=== PATIENT | female | born 1950 | race Caucasian/White ===

== ENCOUNTER 2020-12-02 08:45 | Outpatient (REF) | payer MEDICARE, SELFPAY ==
[2020-12-02 10:42] LABS: MANUAL DIFF FLAG NO
[2020-12-02 10:55] LABS: Basophils Percent Auto 0.4 % (0-2); Eosinophils Absolute Auto 0.1 X10*3/uL (0.0-0.4); Eosinophils Percent Auto 1.6 % (0-4); Hematocrit 40.4 % (37-47); Hemoglobin 13.6 g/dl (12.0-16.0); Imm Gran Abs Auto 0.01 X10*3/uL (0.00-0.03); Imm Gran Pct Auto 0.1 % (0.0-0.4); Lymphocytes Absolute Auto 2.9 X10*3/uL (1.2-4.9); Lymphocytes Percent Auto 42.5 % (20-40); Mean Corpuscular HGB Conc 33.7 g/dl (31.0-35.0); Mean Corpuscular Volume 95.1 fL (80-98); Monocytes Absolute Auto 0.8 X10*3/uL (0.1-1.2); Monocytes Percent Auto 11.3 % (2-11); Neutrophils Percent Auto 44.1 % (45-73); Platelet Count 276 X10*3/uL (160-400); Red Blood Count 4.25 X10*6/uL (4.20-5.50); Red Cell Distribution Width 12.7 % (11.0-16.0); White Blood Count 6.8 X10*3/uL (4.8-10.8)
[2020-12-02 11:00] LABS: Glucose Urine UA NEG (NEG); Leukocyte Esterase Urine 2+ (NEG); Nitrite Urine NEG (NEG); Specific Gravity - Urine 1.025 (1.005-1.025); Urine Blood 2+ (NEG); Urine Ketones NEG (NEG); Urine Protein NEG (NEG-TRACE)
[2020-12-02 11:01] LABS: Appearance Urine HAZY; Color Urine YELLOW
[2020-12-02 11:18] LABS: Alanine Aminotransferase 26 U/L (0-31); Albumin Level 4.1 g/dL (3.5-5.0); Alkaline Phosphatase 80 U/L (39-117); Anion Gap 11 (12-20); Aspartate Amino Transferase 21 U/L (5-31); Bilirubin Total 0.9 mg/dL (0.0-1.0); Blood Urea Nitrogen 18 mg/dL (9-16); Calcium 9.3 mg/dL (8.4-10.2); Carbon Dioxide 31 mmol/L (22-29); Chloride 105 mmol/L (96-108); Cholesterol 142 mg/dL; Estimated Glomerular Filt Rate > 60; Glucose Fasting 102 mg/dL (60-99); HDL Cholesterol 67 mg/dL; LDL Cholesterol Calculated 64 mg/dl; Potassium 4.8 mmol/l (3.3-5.1); Sodium 142 mmol/L (135-145); Total Protein 6.5 g/dL (6.5-8.0); Triglycerides 56 mg/dL
[2020-12-02 11:22] LABS: Bacteria Urine TRACE /LPF; Squamous Epithelial Cell Urine 1+ /LPF
[2020-12-02 11:23] LABS: Mucus Urine 1+ /LPF
[2020-12-02 11:24] LABS: Calcium Oxalate Crystals Urine 1+ /LPF
[2020-12-02 11:40] LABS: TSH reflex Free T4 1.47 mIU/mL (0.32-4.0)
== END 2020-12-02 08:46 | disposition home or self-care (01) ==
LOC: HO.WFDLDS 08:45
PROVIDERS: Visit Provider Family Medicine
DX: Z00.00 Encounter for general adult medical examination without abnormal findings (principal); R73.01 Impaired fasting glucose
CPT/HCPCS: 36415; 80053; 80061; 81001; 81003; 84443; 85025

== ENCOUNTER 2020-12-07 10:41 | Outpatient (REF) | payer MEDICARE, SELFPAY | END 2020-12-07 10:42 | disposition home or self-care (01) | LOC: HO.WFDLDS 10:41 | PROVIDERS: Visit Provider Family Medicine | DX: R82.90 Unspecified abnormal findings in urine (principal) | CPT/HCPCS: 87086 ==

== ENCOUNTER 2020-12-09 14:10 | Outpatient (REF) | payer MEDICARE, SELFPAY ==
[2020-12-09 14:26] LABS: Glucose Urine UA NEG (NEG); Leukocyte Esterase Urine NEG (NEG); Nitrite Urine NEG (NEG); Urine Blood TRACE (NEG); Urine Ketones NEG (NEG); Urine Protein NEG (NEG-TRACE)
[2020-12-09 14:33] LABS: Appearance Urine CLEAR; Color Urine YELLOW
[2020-12-09 14:42] LABS: RBC Urine 0-2 /HPF (0); WBC Urine 0 /HPF (0-4)
== END 2020-12-09 14:11 | disposition home or self-care (01) ==
LOC: HO.LNP 14:10
PROVIDERS: Visit Provider Family Medicine
DX: R82.90 Unspecified abnormal findings in urine (principal)
CPT/HCPCS: 81001

== ENCOUNTER 2021-02-25 08:32 | Outpatient (REF) | payer MEDICARE, SELFPAY ==
--- NOTE | ~2021-02-25 | MM_ITS ---
EXAMINATION: BONE DENSITOMETRY CLINICAL INDICATION: Encounter for screening for osteoporosis. COMPARISON: None (current study represents initial baseline exam). TECHNIQUE: Using a [employer] DXA System (software version: 13.1) manufactured by [employer], dual-energy x-ray absorptiometry was performed of the lumbar spine and left hip. The images are of good technical quality. Summary results are attached. FINDINGS: AP SPINE L1-L4: BMD 1.243 g/cm2, Z-score 2.1, T-score 0.5, normal. LEFT FEMUR, NECK: BMD 0.764 g/cm2, Z-score -0.3, T-score -2.0, osteopenia. LEFT FEMUR, TOTAL: BMD 0.901 g/cm2, Z-score 0.6, T-score -0.8, normal. IDENTIFIED RISK FACTORS: Menopause. HISTORY OF FRACTURE: None listed. MEDICATIONS: Calcium supplements or multivitamin, vitamin D. MM/XR DEXA axial skeleton IMPRESSION: 1. DIAGNOSIS: Osteopenia based on the lowest T-score value of -2.0 in the femoral neck applying World Health Organization criteria. 2. 10-YEAR FRACTURE RISK PREDICTION, FRAX: Major osteoporotic fracture (clinical spine, forearm, hip or shoulder) 12.2%. Hip fracture 2.5%. 3. Treatment Recommendations: NOF guidelines recommend consideration for treatment in postmenopausal women and men age 50 and older presenting with the following: -A hip or vertebral (clinical or morphometric) fracture. -T-score less than or equal to -2.5 at the femoral neck or spine after appropriate evaluation to exclude secondary causes. -Low bone mass at the hip or spine and a 10-year fracture probability by FRAX of greater than or equal to 3% for hip fracture or greater than or equal to 20% for major osteoporotic fracture based on the [place] adapted WHO algorithm. 4. Other Recommendations: All treatment decisions require clinical judgment and consideration of individual patient factors, including patient preferences, comorbidities, previous drug use, risk factors not captured in the FRAX model (e.g. frailty, falls, vitamin D deficiency, increased bone turnover, interval significant decline in bone density) and possible under or overestimation of fracture risk by FRAX. Additional medical evaluation for secondary cause of low bone mineral density may be appropriate. FUTURE SCAN RECOMMENDATION: People with diagnosed cases of osteoporosis or at high risk for fracture should have regular bone mineral density tests. For patients eligible for Medicare, routine testing is allowed once every 2 years. The testing frequency can be increased to one year for patients who have rapidly progressing disease, those who are receiving or discontinuing medical therapy to restore bone mass, or have additional risk factors.
--- NOTE | ~2021-02-25 | MM_ITS ---
EXAMINATION: MM SCREENING DIGITAL BREAST TOMOSYNTHESIS, BILATERAL CLINICAL INFORMATION: Screening. Asymptomatic. Prior [id number] mammography from [place] currently unavailable. Age 70. No known family history breast cancer. The lifetime risk of breast cancer based on the Tyrer-Cuzick Model is 3%. COMPARISON: None. TECHNIQUE: Digital breast tomosynthesis is performed in both the craniocaudal and mediolateral oblique views along with computer-aided detection (CAD). Synthesized 2D images are generated from the tomosynthesis. FINDINGS: There are scattered areas of fibroglandular density (ACR BI-RADS breast composition Category b). The left breast shows no mass or architectural abnormality. The bilateral axilla and skin contours are unremarkable. There are a few scattered punctate round and some vascular calcifications. Right breast has oval focal parenchymal asymmetry mid upper outer approximately 1.3 x 0.9 cm, possibly a cyst with obscured margins. Radiology staff has requested prior [id number] mammography to allow for comparison in an addendum report. If prior outside exams are unable to be retrieved, then patient will be recalled for additional imaging right breast. MM/MM tomosynthesis screening BI IMPRESSION: 1. Right: Oval focal parenchymal asymmetry mid upper outer quadrant possibly cyst with obscured margins 1.3 x 0.9 cm. 2. Left: No mammographic evidence of malignancy. ASSESSMENT: BI-RADS 0: Incomplete - Need Additional Imaging Evaluation RECOMMENDATION: Radiology staff has requested prior [id number] mammography to allow for comparison in an addendum report. If prior outside exams are unable to be retrieved, then patient will be recalled for additional imaging right breast. This patient's information was entered into a reminder system with a target due date for their next mammogram.
== END 2021-02-25 08:33 | disposition home or self-care (01) ==
LOC: HO.MAMMO 08:32
PROVIDERS: Visit Provider Family Medicine
DX: Z13.820 Encounter for screening for osteoporosis (principal); Z78.0 Asymptomatic menopausal state; M85.80 Other specified disorders of bone density and structure, unspecified site; Z79.899 Other long term (current) drug therapy; Z12.31 Encounter for screening mammogram for malignant neoplasm of breast
CPT/HCPCS: 77063; 77067; 77080

== ENCOUNTER 2021-03-02 09:05 | Outpatient (REF) | payer MEDICARE, SELFPAY ==
[2021-03-02 12:09] LABS: Alanine Aminotransferase 25 U/L (0-31); Albumin Level 4.3 g/dL (3.5-5.0); Alkaline Phosphatase 94 U/L (39-117); Anion Gap 10 (12-20); Aspartate Amino Transferase 20 U/L (5-31); Blood Urea Nitrogen 17 mg/dL (9-16); Calcium 9.5 mg/dL (8.4-10.2); Carbon Dioxide 31 mmol/L (22-29); Chloride 105 mmol/L (96-108); Estimated Glomerular Filt Rate > 60; Glucose Fasting 97 mg/dL (60-99); Potassium 5.2 mmol/L (3.3-5.1); Sodium 141 mmol/L (135-145); Total Protein 6.8 g/dL (6.5-8.0)
== END 2021-03-02 09:06 | disposition home or self-care (01) ==
LOC: HO.WFDLDS 09:05
PROVIDERS: Visit Provider Family Medicine
DX: Z00.00 Encounter for general adult medical examination without abnormal findings (principal); R73.01 Impaired fasting glucose
CPT/HCPCS: 36415; 80053

== ENCOUNTER → 2021-03-17 09:53 | Outpatient (BNVA) | payer MEDICARE, SELFPAY | PROVIDERS: PCP Family Medicine; Visit Provider Anesthesiology | DX: M48.00 Spinal stenosis, site unspecified (principal); G89.4 Chronic pain syndrome; Z79.891 Long term (current) use of opiate analgesic | CPT/HCPCS: 99202 ==

== ENCOUNTER 2021-03-23 09:02 | Outpatient (REF) | payer MEDICARE, SELFPAY ==
--- NOTE | ~2021-03-23 | MR_ITS ---
MR LUMBAR SPINE WITHOUT CONTRAST CLINICAL INFORMATION: Spinal stenosis COMPARISON: None TECHNIQUE: MRI of the lumbar spine was obtained using routine sequences without contrast. FINDINGS: There are 5 nonrib-bearing lumbar-type vertebral bodies. There is grade 1 retrolisthesis of L2 on L3 and L5 on S1. There is grade 1 degenerative anterolisthesis of L4 on L5. Vertebral body heights are maintained. Moderate disc volume loss at L2-L3 and moderate to severe disc volume loss at L5-S1. Modic type I endplate signal changes at L2-L3 and L5-S1. There is no additional bone marrow edema. There are no acute fractures. Conus terminates at the T12-L1 level. No significant extraspinal soft tissue findings. Multilevel endplate osteophytes. L1-L2: Small annular disc bulge and moderate bilateral facet arthropathy and ligamentum flavum thickening. Superimposed far left lateral disc protrusion that may result in mass effect on the extraforaminal left L1 nerve root. L2-L3: Grade 1 retrolisthesis. Diffuse annular disc bulge and severe bilateral facet arthropathy and ligamentum flavum thickening. Findings in concert result in moderate to severe central canal stenosis, right greater than left subarticular zone stenosis with mass effect on the traversing right and left L3 nerve roots, and moderate to severe right foraminal stenosis with mass effect on the exiting right L2 nerve root. L3-L4: Diffuse annular disc bulge and severe bilateral facet arthropathy and ligamentum flavum thickening. Findings in concert result in mild to moderate central canal stenosis and mild bilateral foraminal encroachment. L4-L5: Grade 1 degenerative anterolisthesis. Severe bilateral facet arthropathy and ligamentum flavum thickening. Findings in concert result in severe central canal stenosis and moderate to severe bilateral foraminal stenosis with mass effect on the exiting L4 nerve roots bilaterally. L5-S1: Grade 1 retrolisthesis. Broad-based left paracentral disc protrusion compresses the traversing left greater than right S1 nerve roots within the subarticular zones. Disc osteophyte and facet arthropathy result in severe bilateral foraminal stenosis with compression of the exiting L5 nerve roots bilaterally. MR/MR lumbar spine wo con IMPRESSION: - At L5-S1, a broad-based left paracentral disc protrusion compresses the traversing left greater than right S1 nerve roots within the subarticular zones and multifactorial degenerative changes result in severe bilateral foraminal stenosis with compression of the exiting L5 nerve roots bilaterally. - At L4-L5, grade 1 degenerative anterolisthesis and multifactorial degenerative changes result in severe central canal stenosis and moderate to severe bilateral foraminal stenosis with mass effect on the exiting L4 nerve roots bilaterally. - At L2-L3, multifactorial degenerative changes result in moderate to severe central canal stenosis, right greater than left subarticular zone stenosis with mass effect on the traversing right and left L3 nerve roots, and moderate to severe right foraminal stenosis with mass effect on the exiting right L2 nerve root. - At L1-L2, there is a far left lateral disc protrusion that may result in mass effect on the extraforaminal left L1 nerve root.
== END 2021-03-23 09:03 | disposition home or self-care (01) ==
LOC: HO.MRI 09:02
PROVIDERS: Visit Provider Anesthesiology
DX: M48.00 Spinal stenosis, site unspecified (principal); G89.4 Chronic pain syndrome
CPT/HCPCS: 72148

== ENCOUNTER → 2021-03-31 08:11 | Outpatient (BNVA) | payer MEDICARE, SELFPAY | PROVIDERS: PCP Family Medicine; Visit Provider Anesthesiology | DX: M48.00 Spinal stenosis, site unspecified (principal); G89.4 Chronic pain syndrome; Z79.891 Long term (current) use of opiate analgesic | CPT/HCPCS: 99212 ==

== ENCOUNTER → 2021-05-03 10:38 | Outpatient (BNVA) | payer MEDICARE, SELFPAY | PROVIDERS: PCP Family Medicine; Visit Provider Anesthesiology | DX: M48.00 Spinal stenosis, site unspecified (principal); G89.4 Chronic pain syndrome; Z79.891 Long term (current) use of opiate analgesic | CPT/HCPCS: 99212 ==

== ENCOUNTER 2021-06-07 19:39 | Outpatient (REF) | payer MEDICARE, SELFPAY | END 2021-06-07 19:40 | disposition home or self-care (01) | LOC: HO.LNP 19:39 | PROVIDERS: Visit Provider Family Medicine | DX: N39.0 Urinary tract infection, site not specified (principal) | CPT/HCPCS: 87086; 87088; 87186 ==

== ENCOUNTER 2021-08-09 12:24 | Outpatient (REF) | payer MEDICARE, SELFPAY ==
[2021-08-09 13:06] LABS: Influenza A PCR NEGATIVE (Negative); Influenza B PCR NEGATIVE (Negative); Resp Syncy Virus RNA Qual PCR NEGATIVE (Negative); SARS COV2 PCR INHOUSE NEGATIVE (Negative)
== END 2021-08-09 12:25 | disposition home or self-care (01) ==
LOC: HO.LNP 12:24
PROVIDERS: Visit Provider Family Medicine
DX: Z20.822 Contact with and (suspected) exposure to COVID-19 (principal); J02.9 Acute pharyngitis, unspecified; B34.9 Viral infection, unspecified
CPT/HCPCS: 0241U

== ENCOUNTER 2021-09-01 09:44 | Outpatient (REF) | payer MEDICARE, SELFPAY | END 2021-09-01 09:45 | disposition home or self-care (01) | LOC: HO.WFDLDS 09:44 | PROVIDERS: Visit Provider Family Medicine | DX: N39.0 Urinary tract infection, site not specified (principal) | CPT/HCPCS: 87086 ==

== ENCOUNTER 2021-12-23 11:46 | Outpatient (REF) | payer MEDICARE, SELFPAY ==
[2021-12-23 13:30] LABS: MANUAL DIFF FLAG NO
[2021-12-23 13:33] LABS: Basophils Percent Auto 0.4 % (0-2); Eosinophils Absolute Auto 0.1 X10*3/uL (0.0-0.4); Eosinophils Percent Auto 0.7 % (0-4); Hematocrit 43.1 % (37.0-47.0); Hemoglobin 14.5 g/dl (12.0-16.0); Imm Gran Abs Auto 0.02 X10*3/uL (0.00-0.03); Imm Gran Pct Auto 0.3 % (0.0-0.4); Lymphocytes Absolute Auto 2.6 X10*3/uL (1.2-4.9); Mean Corpuscular HGB Conc 33.6 g/dl (31.0-35.0); Mean Corpuscular Hemoglobin 31.2 pg (27.0-33.0); Mean Corpuscular Volume 92.7 fL (80.0-98.0); Monocytes Absolute Auto 0.6 X10*3/uL (0.1-1.2); Monocytes Percent Auto 8.4 % (2-11); Neutrophils Absolute Auto 4.3 x10*3/uL (2.0-8.3); Neutrophils Percent Auto 56.2 % (45-73); Platelet Count 258 X10*3/uL (160-400); Red Blood Count 4.65 X10*6/uL (4.20-5.50); Red Cell Distribution Width 12.6 % (11.0-16.0); White Blood Count 7.6 X10*3/uL (4.8-10.8)
[2021-12-23 14:14] LABS: Alanine Aminotransferase 21 U/L (0-31); Albumin Level 4.2 g/dL (3.5-5.0); Alkaline Phosphatase 84 U/L (39-117); Anion Gap 12 (12-20); Aspartate Amino Transferase 19 U/L (5-31); Bilirubin Total 0.6 mg/dL (0.0-1.0); Blood Urea Nitrogen 17 mg/dL (9-16); Calcium 9.6 mg/dL (8.4-10.2); Carbon Dioxide 29 mmol/L (22-29); Chloride 103 mmol/L (96-108); Cholesterol 150 mg/dL; Estimated Glomerular Filt Rate > 60; Glucose Fasting 100 mg/dL (60-99); HDL Cholesterol 66 mg/dL; LDL Cholesterol Calculated 68 mg/dl; Potassium 4.3 mmol/L (3.3-5.1); Sodium 140 mmol/L (135-145); Triglycerides 81 mg/dL
[2021-12-23 14:25] LABS: TSH reflex Free T4 1.15 uIU/mL (0.32-4.0)
== END 2021-12-23 11:47 | disposition home or self-care (01) ==
LOC: HO.WFDLDS 11:46
PROVIDERS: Visit Provider Family Medicine
DX: Z00.00 Encounter for general adult medical examination without abnormal findings (principal)
CPT/HCPCS: 36415; 80053; 80061; 84443; 85025

== ENCOUNTER 2022-01-17 18:05 | Outpatient (REF) | payer MEDICARE, SELFPAY | END 2022-01-17 18:06 | disposition home or self-care (01) | LOC: HO.LNP 18:05 | PROVIDERS: Visit Provider Family Medicine | DX: R05.9 Cough, unspecified (principal); Z20.822 Contact with and (suspected) exposure to COVID-19 | CPT/HCPCS: U0003; U0005 ==

== ENCOUNTER 2022-02-26 08:39 | Outpatient (REF) | payer MEDICARE, SELFPAY ==
--- NOTE | ~2022-02-26 | MM_ITS ---
EXAMINATION: MM SCREENING DIGITAL BREAST TOMOSYNTHESIS, BILATERAL CLINICAL INFORMATION: Screening. Asymptomatic. The lifetime risk of breast cancer based on the Tyrer-Cuzick Model is 3%. COMPARISON: Mammography: 02/25/2021, 10/23/2019, 10/22/2018 TECHNIQUE: Digital breast tomosynthesis is performed in both the craniocaudal and mediolateral oblique views along with computer-aided detection (CAD). Synthesized 2D images are generated from the tomosynthesis. FINDINGS: There are scattered areas of fibroglandular density (ACR BI-RADS breast composition Category b). There are no significant masses, abnormal calcifications, or other abnormalities. Oval nodular parenchymal asymmetry posterior upper outer right breast is decreased since 2018. There is no developing density. No architectural abnormality. The axilla and skin contours are unremarkable. MM/MM tomosynthesis screening BI IMPRESSION: No mammographic evidence of malignancy. ASSESSMENT: BI-RADS 2: Benign RECOMMENDATION: Routine annual mammography screening. This patient's information was entered into a reminder system with a target due date for their next mammogram.
== END 2022-02-26 08:40 | disposition home or self-care (01) ==
LOC: HO.MAMMO 08:39
PROVIDERS: Visit Provider Family Medicine
DX: Z12.31 Encounter for screening mammogram for malignant neoplasm of breast (principal)
CPT/HCPCS: 77063; 77067

== ENCOUNTER 2022-06-08 11:40 | Outpatient (REF) | payer MEDICARE, SELFPAY | END 2022-06-08 11:41 | disposition home or self-care (01) | LOC: HO.LNP 11:40 | PROVIDERS: Visit Provider Hospitalist | DX: R30.0 Dysuria (principal); N39.0 Urinary tract infection, site not specified | CPT/HCPCS: 87086; 87088; 87186 ==

== ENCOUNTER 2022-08-30 14:32 | Outpatient (REF) | payer MEDICARE, SELFPAY ==
[2022-08-30 16:01] LABS: Influenza A PCR NEGATIVE (Negative); Influenza B PCR NEGATIVE (Negative); Resp Syncy Virus RNA Qual PCR POSITIVE (Negative); SARS COV2 PCR INHOUSE NEGATIVE (Negative)
== END 2022-08-30 14:33 | disposition home or self-care (01) ==
LOC: HO.LNP 14:32
PROVIDERS: Visit Provider Nurse Practitioner Family
DX: J06.9 Acute upper respiratory infection, unspecified (principal); Z20.822 Contact with and (suspected) exposure to COVID-19
CPT/HCPCS: 0241U

== ENCOUNTER 2022-09-01 09:02 | Outpatient (REF) | payer MEDICARE, SELFPAY ==
[2022-09-01 11:55] LABS: Estimated Average Glucose 111 mg/dL; Hemoglobin A1c % 5.5 %
[2022-09-01 12:22] LABS: TSH reflex Free T4 1.56 uIU/mL (0.32-4.0)
[2022-09-01 12:23] LABS: Alanine Aminotransferase 25 U/L (0-31); Alkaline Phosphatase 93 U/L (39-117); Anion Gap 15 (12-20); Aspartate Amino Transferase 19 U/L (5-31); Bilirubin Total 0.4 mg/dL (0.0-1.0); Blood Urea Nitrogen 21 mg/dL (9-16); Calcium 9.6 mg/dL (8.4-10.2); Carbon Dioxide 29 mmol/L (22-29); Chloride 104 mmol/L (96-108); Cholesterol 146 mg/dL; Estimated Glomerular Filt Rate > 60; Glucose Fasting 90 mg/dL (60-99); HDL Cholesterol 60 mg/dL; LDL Cholesterol Calculated 71 mg/dl; Potassium 4.3 mmol/L (3.3-5.1); Sodium 144 mmol/L (135-145); Total Protein 6.7 g/dL (6.5-8.0); Triglycerides 79 mg/dL
[2022-09-01 12:39] LABS: Creatinine Urine 126.35 mg/dL; Microalbum/Creatinine Ratio Ur 10.2 ug/mg cr
== END 2022-09-01 09:03 | disposition home or self-care (01) ==
LOC: HO.WFDLDS 09:02
PROVIDERS: Visit Provider Family Medicine
DX: Z00.00 Encounter for general adult medical examination without abnormal findings (principal); R73.01 Impaired fasting glucose; I10 Essential (primary) hypertension
CPT/HCPCS: 36415; 80053; 80061; 82043; 83036; 84443

== ENCOUNTER 2023-03-04 08:40 | Outpatient (REF) | payer MEDICARE, SELFPAY ==
--- NOTE | ~2023-03-04 | MM_ITS ---
EXAMINATION: MM SCREENING DIGITAL BREAST TOMOSYNTHESIS, BILATERAL CLINICAL INFORMATION: Screening. Asymptomatic. The lifetime risk of breast cancer based on the Tyrer-Cuzick Model is 2%. COMPARISON: Mammography: 02/26/2022, 02/25/2021; outside mammography 10/23/2019, 10/22/2018, 10/19/2017 ([place], [place]). TECHNIQUE: Digital breast tomosynthesis is performed in both the craniocaudal and mediolateral oblique views along with computer-aided detection (CAD). Synthesized 2D images are generated from the tomosynthesis. FINDINGS: There are scattered areas of fibroglandular density (ACR BI-RADS breast composition Category b). Parenchymal pattern is similar to prior studies. Oval asymmetry posterior upper outer right breast is decreased since outside exams. No architectural abnormality or developing density or significant change from prior studies. There are no significant masses, abnormal calcifications, or other abnormalities. The axilla and skin contours are unremarkable. MM/MM tomosynthesis screening BI IMPRESSION: No mammographic evidence of malignancy. ASSESSMENT: BI-RADS 2: Benign RECOMMENDATION: Routine annual mammography screening. This patient's information was entered into a reminder system with a target due date for their next mammogram.
== END 2023-03-04 08:41 | disposition home or self-care (01) ==
LOC: HO.MAMMO 08:40
PROVIDERS: PCP Family Medicine; Visit Provider Family Medicine
DX: Z12.31 Encounter for screening mammogram for malignant neoplasm of breast (principal)
CPT/HCPCS: 77063; 77067

== ENCOUNTER 2023-12-21 15:44 | Outpatient (AMB) | payer MEDICARE, SELFPAY ==
--- NOTE | 2023-12-21 16:00 | A.OFFPC_ITS ---
Vital Signs 12/21/23 16:01 Height 5 ft 3 in Weight 131 lb BMI 23.2 BP 110/68 Blood Pressure Location Lt brachial Position Sitting Pulse 62 Pulse Source Pulse Oximeter Pulse Oximetry (%) 99 Oxygen Delivery Method Room Air Intake Visit Reasons: CPE with f/u labs and health maint. Intake Note: Patient is here for physical and health maintenance. Allergies Penicillins Allergy (Verified 12/21/23 16:04) Rash Medication List - Last Reconciled 12/21/23 by Bacilio Vee MD aspirin (Ramesh Chewable Low Dose Aspirin) 81 mg PO DAILY atorvastatin 20 mg PO DAILY cetirizine (All Day Allergy (cetirizine)) 10 mg PO DAILY PRN cholecalciferol (vitamin D3) 25 mcg PO DAILY dextromethorphan HBr 20 mg (15 mL) PO TID PRN 5 days gabapentin 300 mg PO BEDTIME 90 days ipratropium bromide 2 sprays intranasal BID lisinopril 20 mg PO DAILY meclizine 25 mg PO TID meloxicam 7.5 mg PO DAILY 30 days naloxone 4 mg/actuation (Narcan) 4 mg intranasal Q2M PRN prednisone 40 mg (2 x 20 mg) PO DAILY 5 days tramadol 50 mg PO BEDTIME 30 days Tobacco use date assessed: 12/21/23 Fall risk assessment: No Falls in past year Last assessed Fall Risk: 12/21/23 Dental Screening Dental Screen Date: 12/21/23 Did you have a dental visit in the last 12 months?: No Did you have a dental problem in the last 6 months where you did not have access to dental care?: No Was dental information given to patient?: Patient declined HPI CPE with f/u labs and health maint. HPI Details 73 y/o female presents for a CPE with f/ u labs and health maintenance. No recent labs to review. Cologuard 10/13/23 negative. She is due for a mammogram. 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 Mother No problems noted. Social History Housing: House Alcohol intake: current Alcohol intake frequency: holidays/special occasions only Patient Tobacco Use Status: Never used Tobacco e-Cigarette/Vaping Use: Never Used Second Hand Smoke Exposure: No service: No Current occupational status: retired Current occupational exposures/hazards: No Cognitive needs: No Hearing needs: No Vision needs: No Questionnaire PHQ-9 Over the last 2 weeks, how often have you been bothered by any of the following problems? 1. Little interest or pleasure in doing things: not at all 2. Feeling down, depressed, or hopeless: not at all 3. Trouble falling or staying asleep, or sleeping too much: not at all 4. Feeling tired or having little energy: not at all 5. Poor appetite or overeating: not at all 6. Feeling bad about yourself - or that you are a failure or have let yourself or your family down: not at all 7. Trouble concentrating on things, such as reading the newspaper or watching television: not at all 8. Moving or speaking so slowly that other people could have noticed. Or the opposite - being so fidgety or restless that you have been moving around a lot more than usual: not at all 9. Thoughts that you would be better off or of hurting yourself in some way: not at all Total score: 0 Source: Developed by Drs. Eusebio López, Ellie Palacios, Sachin Moncada and colleagues, with an educational yovani from [employer]. Thrive Questionnaire Date Thrive assessed: 12/21/23 I am a: Patient What is your living situation today?: I have a steady place to live Within the past 12 months, did the food you bought not last and you didn't have the money to get more?: Never true Within the past 12 months, did you worry whether your food would run out before you got money to buy more?: Never true Do you have trouble paying for medicines?: No Do you have trouble getting transportation to medical appointments?: No Do you have trouble paying your heating and electricity bill?: No Do you have trouble taking care of your child, family member or friend?: No Do you have trouble with day-to-day activities such as bathing, preparing meals, shopping, managing finances, etc.?: No Are you currently unemployed and looking for a job?: No Are you interested in more education?: No THRIVE Score: 0 AUDIT C Alcohol Use Questionnaire (AUDIT-C) 1. How often do you have a drink containing alcohol?: Monthly or less 2. How many drinks containing alcohol do you have on a typical day when you are drinking?: 1 or 2 3. How often do you have six or more drinks on one occasion?: Never Total Score: 1 JAZMYN-7 AMB Questionnaire JAZMYN-7 Date JAZMYN - 7 assessed: 12/21/23 Feeling nervous, anxious, or on edge: 0 = Not at all Not being able to stop or control worryin = Not at all Worrying too much about different things: 0 = Not at all Trouble relaxin = Not at all Being so restless that it is hard to sit still: 0 = Not at all Becoming easily annoyed or irritable: 0 = Not at all Feeling afraid as if something awful might happen: 0 = Not at all Total JAZMYN-7 score (0-4 normal; 5-9 mild; 10-14 moderate; 15-21 severe): 0 Source: Developed by Drs. Eusebio López, Ellie Palacios, Sachin Moncada and colleagues, with an educational yovani from [employer]. Review of Systems Const Denies chills, Denies fatigue, Denies fever(s), Denies headache(s) and Denies weakness Eyes Denies change in vision ENT Denies dizziness, Denies headache(s), Denies hearing loss, Denies nasal congestion, Denies sinus pain, Denies sinus pressure and Denies sore throat Card Denies chest pain, Denies lightheadedness, Denies dyspnea and Denies other (palpitations) Resp Denies cough, Denies dyspnea and Denies wheezing GI Denies abdominal pain, Denies melena, Denies hematochezia, Denies change in bowel habits, Denies dyspepsia and Denies nausea Denies hematuria and Denies dysuria Musc Denies abnormal gait, Denies myalgias, Denies arthralgias, Denies numbness and Denies tingling Skin/Breast Denies rash, Denies unusual bruising and Denies wounds Neuro Denies abnormal gait, Denies dizziness, Denies headache(s), Denies memory loss, Denies numbness, Denies Sensory deficit (Neuro), Denies tingling and Denies weakness Psych Denies anxiety, Denies depression and Denies memory loss Endo Denies cold intolerance, Denies fatigue, Denies heat intolerance, Denies polydipsia and Denies polyuria Dilshad/Lymph Denies easy bleeding and Denies easy bruising Aller/Immun Denies wheezing Physical exam (Primary Care) Vital Signs: Last Vital Signs Pulse 62 12/21/23 16:01 BP 110/68 12/21/23 16:01 Pulse Ox 99 12/21/23 16:01 Oxygen Delivery Method Room Air 12/21/23 16:01 BMI result Body Mass Index 23.2 Tobacco/Smoking Status: Tobacco use Status Tobacco use date assessed 12/21/23 12/21/23 16:14 Patient Tobacco Use Status Never used Tobacco 12/21/23 16:02 e-Cigarette/Vaping Use Never Used 12/21/23 16:02 PHQ-9: PHQ-9 Score PHQ-9: Total score 0 12/21/23 16:30 Thrive Assessment: Date of Thrive Assessment Date Thrive assessed 12/21/23 12/21/23 16:14 Const General: no acute distress, well developed, alert and awake Nutritional Appearance: well nourished Orientation/consciousness: patient oriented x3 HENMT Head: Yes normocephalic and Yes atraumatic Ears: hearing grossly normal bilaterally and TM's normal bilaterally General nose exam: Normal external nose present and Normal nares present Mouth: Normal oral and palatal mucosa present and moist mucous membranes Teeth and gingiva: dentition normal Throat: Yes posterior oropharynx normal Eyes General: appearance normal, both eyes and all related structures Pupils: Equal, round and reactive pupils present and Pupil accommodation reflex normal EOM: EOMs intact bilaterally Neck Neck: Yes normal visual inspection, Yes no lymphadenopathy and Yes trachea midline Thyroid: Thyroid normal Carotids: no bruits Lymphatic: no lymphadenopathy noted Chest Chest palpation & inspection: normal inspection of the chest Resp Effort & Inspection: normal respiratory effort Auscultation: clear to auscultation bilaterally Cardio Rate: regular rate Rhythm: regular rhythm Heart sounds: S1 normal heart sound present, S2 normal heart sound present, no gallops, no murmurs and no rubs Bruits: no abdominal aortic bruits and no carotid bruits GI Palpation (GI): No Abdominal aortic bruit present, Soft to palpation, nontender, No hepatosplenomegaly present and No Rebound tenderness present Auscultation: normal bowel sounds General: Yes no CVA tenderness Back/Spine/Pelvis Back: no CVA tenderness Cervical Spine: cervical ROM normal and No Cervical spine tenderness Thoracic/Lumbar Spine: thoraco-lumbar ROM normal, No pain with thoraco-lumbar ROM, No thoracic spinal tenderness and No lumbar spinal tenderness Skin Lesions: no lesions Rashes: no rashes Trauma: no lacerations or abrasions Wounds: no wounds Nails: normal Neuro General: patient oriented x3 Cranial nerves: Yes Equal, round and reactive pupils present Cognition (Neuro): normal cognition Gait exam (Neuro): Normal gait present Motor exam (neuro): 5/5 motor strength present throughout Sensory Exam: No Sensory deficit (Neuro) Deep tendon reflexes (DTR's): Right patellar reflex intensity grade: 2+ and Left patellar reflex intensity grade: 2+ Extrem General: Yes normal to inspection and No edema Psych Appearance: grossly normal Affect: normal affect Attitude: cooperative Thought process: Normal thought process present Assessment and Plan Assessment & Plan (1) Adult general medical exam: Code(s): Z00.00 - Encounter for general adult medical examination without abnormal findings Plan: 73-year-old?female?presents?for?complete?physical?exam Encouraged?healthy?diet?with?active?lifestyle?and?plenty?of?exercise (2) Essential hypertension: Code(s): I10 - Essential (primary) hypertension Plan: Blood?pressure?is?well?controlled.??Goal?is?140/90 Continue?current?medication?regimen (3) Hyperlipidemia: Code(s): E78.5 - Hyperlipidemia, unspecified Plan: Check?lipid (4) Screening for colon cancer: Code(s): Z12.11 - Encounter for screening for malignant neoplasm of colon Plan: She?had?a?Cologuard?test?in?October?2022?which?was?negative. We?can?continue?screening?every?3?years (5) Screening for breast cancer: Code(s): Z12.39 - Encounter for other screening for malignant neoplasm of breast Plan: Mammogram?in?February?2022?was?negati ve?for?malignancies.??She?has?her?next?mammogram?scheduled Order?is?in (6) Screening for osteoporosis: Code(s): Z13.820 - Encounter for screening for osteoporosis Plan: Due?for?bone?density?test. Order Orders: Orders XR DEXA axial skeleton Today M81.0 - Age-related osteoporosis without current pathological fracture MM tomosynthesis screening BI Today Z12.31 - Encounter for screening mammogram for malignant neoplasm of breast Comprehensive [place]. Panel Fast Today Z00.00 - Encounter for general adult medical examination without abnormal findings UA and rflx microscopic Today Z00.00 - Encounter for general adult medical examination without abnormal findings TSH reflex Free T4 Today Z00.00 - Encounter for general adult medical examination without abnormal findings Microalbumin, Random (w Creat) Today I10 - Essential (primary) hypertension Lipid Panel Today Z00.00 - Encounter for general adult medical examination without abnormal findings Vitamin D 25-OH Total Today E55.9 - Vitamin D deficiency, unspecified Complete Blood Count Auto Diff Today Z00.00 - Encounter for general adult medical examination without abnormal findings Coding Level of Care Code Est Pt Level 3 (23763) Est Pt Prev Care >65y(18684) Diagnoses Adult general medical exam Z00.00 Essential hypertension I10 Hyperlipidemia E78.5 Screening for colon cancer Z12.11 Screening for breast cancer Z12.39 Screening for osteoporosis Z13.820
[2023-12-21 16:01] VITALS: BP 110/68; PULSE 62; O2SAT 99; BMI 23.2
== END 2023-12-21 16:52 | disposition home or self-care (01) ==
PROVIDERS: PCP Family Medicine; Visit Provider Family Medicine
DX: Z00.00 Encounter for general adult medical examination without abnormal findings (principal); I10 Essential (primary) hypertension; E78.5 Hyperlipidemia, unspecified; Z12.11 Encounter for screening for malignant neoplasm of colon; Z12.39 Encounter for other screening for malignant neoplasm of breast; Z13.820 Encounter for screening for osteoporosis
CPT/HCPCS: 99397

== ENCOUNTER 2023-12-28 10:11 | Outpatient (REF) | payer MEDICARE, SELFPAY ==
[2023-12-28 11:39] LABS: MANUAL DIFF FLAG NO
[2023-12-28 11:52] LABS: Basophils Percent Auto 0.4 % (0-2); Eosinophils Absolute Auto 0.1 X10*3/uL (0.0-0.4); Eosinophils Percent Auto 1.5 % (0-4); Hematocrit 42.4 % (37.0-47.0); Hemoglobin 14.5 g/dl (12.0-16.0); Imm Gran Abs Auto 0.03 X10*3/uL (0.00-0.03); Imm Gran Pct Auto 0.4 % (0.0-0.4); Lymphocytes Percent Auto 44.2 % (20-40); Mean Corpuscular HGB Conc 34.2 g/dl (31.0-35.0); Mean Corpuscular Hemoglobin 31.6 pg (27.0-33.0); Mean Corpuscular Volume 92.4 fL (80.0-98.0); Mean Platelet Volume 10.8 fL (9.4-12.3); Monocytes Absolute Auto 0.6 X10*3/uL (0.1-1.2); Neutrophils Percent Auto 44.5 % (45-73); Platelet Count 280 X10*3/uL (160-400); Red Blood Count 4.59 X10*6/uL (4.20-5.50); Red Cell Distribution Width 12.3 % (11.0-16.0); White Blood Count 6.7 X10*3/uL (4.8-10.8)
[2023-12-28 14:12] LABS: Appearance Urine Clear; Color Urine Yellow; Glucose Urine UA Negative (Negative); Leukocyte Esterase Urine Moderate (2+) (Negative); Nitrite Urine Negative (Negative); PH 7.5 (5.0-9.0); UMIC TRIGGER UA YES; Urine Blood Trace (Negative); Urine Ketones Negative (Negative); Urine Protein Negative (Neg-Trace)
[2023-12-28 14:21] LABS: Bacteria Urine None Seen (None Seen); Hyaline Casts Urine 0-2 /LPF (0-2); Squamous Epithelial Cell Urine 0-2 /HPF (0-2); WBC Urine 0-5 /HPF (0-5)
[2023-12-28 14:41] LABS: Microalbum/Creatinine Ratio Ur 19.7 ug/mg cr (<30)
[2023-12-28 14:42] LABS: Alanine Aminotransferase 17 U/L (0-31); Albumin Level 4.2 g/dL (3.5-5.0); Alkaline Phosphatase 99 U/L (39-117); Anion Gap 9 (12-20); Aspartate Amino Transferase 17 U/L (5-31); Bilirubin Total 0.7 mg/dL (0.0-1.0); Blood Urea Nitrogen 15 mg/dL (9-16); Calcium 9.3 mg/dL (8.4-10.2); Carbon Dioxide 32 mmol/L (22-29); Chloride 105 mmol/L (96-108); Cholesterol 151 mg/dL (<200); Estimated Glomerular Filt Rate > 60; Glucose Fasting 100 mg/dL (60-99); HDL Cholesterol 73 mg/dL (>40); LDL Cholesterol Calculated 64 mg/dL (<100); Potassium 4.8 mmol/L (3.3-5.1); Sodium 141 mmol/L (135-145); Triglycerides 72 mg/dL (<150)
[2023-12-28 14:59] LABS: TSH reflex Free T4 0.79 uIU/mL (0.32-4.0); Vitamin D 25-OH Total 64.1 ng/mL (>30)
== END 2023-12-28 10:12 | disposition home or self-care (01) ==
LOC: HO.WFDLDS 10:11
PROVIDERS: Visit Provider Family Medicine
DX: Z00.00 Encounter for general adult medical examination without abnormal findings (principal); I10 Essential (primary) hypertension; E55.9 Vitamin D deficiency, unspecified
CPT/HCPCS: 36415; 80053; 80061; 81001; 82043; 82306; 82570; 84443; 85025

== ENCOUNTER 2024-01-03 08:51 | Outpatient (REF) | payer MEDICARE, SELFPAY ==
--- NOTE | ~2024-01-03 | MM_ITS ---
EXAMINATION: BONE DENSITOMETRY CLINICAL INDICATION: Osteoporosis. COMPARISON: Baseline BD dated 02/25/2021. TECHNIQUE: Using a [employer] DXA System (software version: 13.1) manufactured by [employer], dual-energy x-ray absorptiometry was performed of the lumbar spine and left hip. The images are of good technical quality. Summary results are attached. FINDINGS: LEFT FEMUR, NECK: Current: BMD 0.725 g/cm2, Z-score -0.4, T-score -2.3, osteopenia. Baseline: BMD 0.764 g/cm2. LEFT FEMUR, TOTAL: Current: BMD 0.845 g/cm2, Z-score 0.4, T-score -1.3, osteopenia, 6.2% decrease from baseline (<5% change is not significant). Baseline: BMD 0.901 g/cm2. AP SPINE L1-L4: Current: BMD 1.360 g/cm2, Z-score 3.2, T-score 1.5, normal, 9.4% increase from baseline (<5% change is not significant). Baseline: BMD 1.243 g/cm2. IDENTIFIED RISK FACTORS: Menopause. HISTORY OF FRACTURE: None listed. MEDICATIONS: Calcium or multivitamin. Vitamin D. MM/XR DEXA axial skeleton IMPRESSION: 1. DIAGNOSIS: Osteopenia based on the lowest T-score value of -2.3 in the femoral neck applying World Health Organization criteria. 2. 10-YEAR FRACTURE RISK PREDICTION, FRAX: Major osteoporotic fracture (clinical spine, forearm, hip or shoulder) 14.8%. Hip fracture 4.1%. 3. Treatment Recommendations: NOF guidelines recommend consideration for treatment in postmenopausal women and men age 50 and older presenting with the following: -A hip or vertebral (clinical or morphometric) fracture. -T-score less than or equal to -2.5 at the femoral neck or spine after appropriate evaluation to exclude secondary causes. -Low bone mass at the hip or spine and a 10-year fracture probability by FRAX of greater than or equal to 3% for hip fracture or greater than or equal to 20% for major osteoporotic fracture based on the [place] adapted WHO algorithm. 4. Other Recommendations: All treatment decisions require clinical judgment and consideration of individual patient factors, including patient preferences, comorbidities, previous drug use, risk factors not captured in the FRAX model (e.g. frailty, falls, vitamin D deficiency, increased bone turnover, interval significant decline in bone density) and possible under or overestimation of fracture risk by FRAX. Additional medical evaluation for secondary cause of low bone mineral density may be appropriate. FUTURE SCAN RECOMMENDATION: People with diagnosed cases of osteoporosis or at high risk for fracture should have regular bone mineral density tests. For patients eligible for Medicare, routine testing is allowed once every 2 years. The testing frequency can be increased to one year for patients who have rapidly progressing disease, those who are receiving or discontinuing medical therapy to restore bone mass, or have additional risk factors.
== END 2024-01-03 08:52 | disposition home or self-care (01) ==
LOC: HO.MAMMO 08:51
PROVIDERS: PCP Family Medicine; Visit Provider Family Medicine
DX: Z13.820 Encounter for screening for osteoporosis (principal); Z78.0 Asymptomatic menopausal state; M81.0 Age-related osteoporosis without current pathological fracture
CPT/HCPCS: 77080

== ENCOUNTER 2024-02-15 15:48 | Outpatient (AMB) | payer MEDICARE, SELFPAY ==
--- NOTE | 2024-02-15 15:42 | A.OFFPC_ITS ---
Intake Visit Reasons: follow up lab/ bone density Intake Note: Patient is following up on labs and bone density results today. Allergies Penicillins Allergy (Verified 12/21/23 16:04) Rash Tobacco use date assessed: 02/15/24 Fall risk assessment: No Falls in past year Last assessed Fall Risk: 02/15/24 Dental Screening Dental Screen Date: 12/21/23 HPI follow up lab/ bone density HPI Details 73 y/o female presents to f/u labs/bone density via telemedicine. Labs were drawn 12/28/23. Reviewed labs with pt. Borderline elevated fasting glucose of 100. Last A1c 09/01/22 5.5%. Triglycerides 72. TC 151. LDL 64. HDL 73. She is on artovastatin 20mg daily. Bone density test 01/03/24 shows osteopenia. [facility] Medical History [facility] (current) use of opiate analgesic Chronic pain syndrome Chronic sinusitis Surgical History History of tubal ligation History of cholecystectomy Family History Father No problems noted. Mother No problems noted. Social History Housing: House Alcohol intake: current Alcohol intake frequency: holidays/special occasions only Patient Tobacco Use Status: Never used Tobacco e-Cigarette/Vaping Use: Never Used Second Hand Smoke Exposure: No service: No Current occupational status: retired Current occupational exposures/hazards: No Cognitive needs: No Hearing needs: No Vision needs: No Questionnaire Thrive Questionnaire Date Thrive assessed: 12/21/23 JAZMYN-7 AMB Questionnaire JAZMYN-7 Date JAZMYN - 7 assessed: 12/21/23 Source: Developed by Drs. Eusebio López, Ellie Palacios, Sachin Moncada and colleagues, with an educational yovani from [employer]. Review of Systems Const Denies chills, Denies fatigue, Denies fever(s), Denies headache(s) and Denies weakness ENT Denies dizziness and Denies headache(s) Card Denies dyspnea Resp Denies cough, Denies dyspnea, Denies wheezing and Denies other (shortness of breath) Musc Denies numbness and Denies tingling Neuro Denies dizziness, Denies headache(s), Denies numbness, Denies tingling and Denies weakness Psych Denies anxiety and Denies depression Endo Denies fatigue Aller/Immun Denies wheezing Physical exam (Primary Care) Tobacco/Smoking Status: Tobacco use Status Tobacco use date assessed 02/15/24 02/15/24 15:45 Patient Tobacco Use Status Never used Tobacco 02/15/24 15:45 e-Cigarette/Vaping Use Never Used 02/15/24 15:45 Thrive Assessment: Date of Thrive Assessment Date Thrive assessed 12/21/23 02/15/24 15:45 Telehealth Telehealth Location of provider rendering services: practice address Location of patient: address on file Patient Identification confirmed using: Name, : No Telehealth method: voice only Patient verbally consented to treatment: Yes Patient verbally consented to billing insurance company: Yes Patient informed of any privacy concerns related to visit: Yes Minutes spent on Phone/Video with Pt.: 9 Assessment and Plan Assessment & Plan (1) Elevated fasting blood sugar: Code(s): R73.01 - Impaired fasting glucose Plan: Mildly?elevated?fasting?blood?sugar?and?she?has?had?A1c?test?in?the?upper?range? of?normal?in?the?past Will?recheck?these?prior?to?her?next?visit?and?follow-up (2) Hyperlipidemia: Code(s): E78.5 - Hyperlipidemia, unspecified Plan: Lipids?are?well?controlled?on?atorvastatin Continue?current?medication (3) Osteopenia: Code(s): M85.80 - Other specified disorders of bone density and structure, unspecified site Plan: Bone?density?shows?osteopenia She?is?on?vitamin-D?and?gets?good?sources?of?calcium.?? I?encouraged?her?to?continue?this?and?to?get?weight-bearing?exercise We?will?continue?to?follow?every?2?years Orders: Orders Comprehensive [place]. Panel Fast Today R73.01 - Impaired fasting glucose, Z00.00 - Encounter for general adult medical examination without abnormal findings Hemoglobin A1c Today R73.01 - Impaired fasting glucose Coding Level of Care Code Tele Est Pt Level 2 (12210) Diagnoses Elevated fasting blood sugar R73.01 Hyperlipidemia E78.5 Osteopenia M85.80
== END 2024-02-15 16:51 | disposition home or self-care (01) ==
LOC: HO.HMGFM 15:48
PROVIDERS: PCP Family Medicine; Visit Provider Family Medicine
DX: R73.01 Impaired fasting glucose (principal); E78.5 Hyperlipidemia, unspecified; M85.80 Other specified disorders of bone density and structure, unspecified site
CPT/HCPCS: G2012

== ENCOUNTER 2024-03-09 08:45 | Outpatient (REF) | payer MEDICARE, SELFPAY | END 2024-03-09 08:46 | disposition home or self-care (01) | LOC: HO.MAMMO 08:45 | PROVIDERS: PCP Family Medicine; Visit Provider Family Medicine | DX: Z12.31 Encounter for screening mammogram for malignant neoplasm of breast (principal) | CPT/HCPCS: 77063; 77067 ==

== ENCOUNTER → 2024-03-09 09:00 | Outpatient (BNV) | payer MEDICARE, SELFPAY | PROVIDERS: PCP Family Medicine; Visit Provider Radiology Diagnostic Radiology | DX: Z12.31 Encounter for screening mammogram for malignant neoplasm of breast (principal) | CPT/HCPCS: 77063; 77067 ==

== ENCOUNTER 2024-05-15 08:41 | Outpatient (REF) | payer MEDICARE, SELFPAY ==
[2024-05-15 13:22] LABS: Appearance Urine Clear; Color Urine Yellow; Glucose Urine UA Negative (Negative); Leukocyte Esterase Urine Trace (Negative); Nitrite Urine Negative (Negative); Specific Gravity - Urine 1.015 (1.005-1.025); UMIC TRIGGER UA YES; Urine Blood Moderate (2+) (Negative); Urine Ketones Negative (Negative); Urine Protein Negative (Neg-Trace)
[2024-05-15 13:27] LABS: Bacteria Urine None Seen (None Seen); Hyaline Casts Urine 0-2 /LPF (0-2); Squamous Epithelial Cell Urine 0-2 /HPF (0-2); WBC Urine 0-5 /HPF (0-5)
[2024-05-15 13:32] LABS: Alanine Aminotransferase 20 U/L (0-31); Albumin Level 4.3 g/dL (3.5-5.0); Alkaline Phosphatase 95 U/L (39-117); Anion Gap 11 (12-20); Aspartate Amino Transferase 20 U/L (5-31); Bilirubin Total 0.7 mg/dL (0.0-1.0); Blood Urea Nitrogen 17 mg/dL (9-16); Calcium 9.7 mg/dL (8.4-10.2); Carbon Dioxide 30 mmol/L (22-29); Chloride 104 mmol/L (96-108); Estimated Glomerular Filt Rate > 60; Glucose Fasting 97 mg/dL (60-99); Sodium 141 mmol/L (135-145); Total Protein 7.1 g/dL (6.5-8.0)
[2024-05-15 13:40] LABS: Estimated Average Glucose 108 mg/dL; Hemoglobin A1c % 5.4 % (<6.0)
== END 2024-05-15 08:42 | disposition home or self-care (01) ==
LOC: HO.WFDLDS 08:41
PROVIDERS: Visit Provider Family Medicine
DX: Z00.00 Encounter for general adult medical examination without abnormal findings (principal); R73.01 Impaired fasting glucose
CPT/HCPCS: 36415; 80053; 81001; 83036

== ENCOUNTER 2024-05-21 14:17 | Outpatient (AMB) | payer MEDICARE, SELFPAY ==
[2024-05-21 14:40] VITALS: BP 112/72; PULSE 78; O2SAT 97; BMI 24.5
--- NOTE | 2024-05-21 14:40 | A.OFFPC_ITS ---
Vital Signs 05/21/24 14:40 Height 5 ft 3 in Weight 138 lb 2 oz BMI 24.5 BP 112/72 Blood Pressure Location Lt brachial Position Sitting Pulse 78 Pulse Source Pulse Oximeter Pulse Oximetry (%) 97 Oxygen Delivery Method Room Air Intake Visit Reasons: f/u elevated fasting glucose Intake Note: Patient is here to follow up on elevated fasting blood glucose. Patient is requesting refill of Tramadol. Allergies Penicillins Allergy (Verified 05/21/24 14:41) Rash Medication List - Last Reconciled 05/21/24 by Bacilio Vee MD aspirin (Ramesh Chewable Low Dose Aspirin) 81 mg PO DAILY atorvastatin 20 mg PO DAILY cetirizine (All Day Allergy (cetirizine)) 10 mg PO DAILY PRN cholecalciferol (vitamin D3) 25 mcg PO DAILY dextromethorphan HBr 20 mg (15 mL) PO TID PRN 5 days gabapentin 300 mg PO BEDTIME 90 days ipratropium bromide 2 sprays intranasal BID lisinopril 20 mg PO DAILY meclizine 25 mg PO TID meloxicam 7.5 mg PO DAILY 30 days naloxone 4 mg/actuation (Narcan) 4 mg intranasal Q2M PRN prednisone 40 mg (2 x 20 mg) PO DAILY 5 days tramadol 50 mg PO DAILY 30 days Tobacco use date assessed: 05/21/24 Fall risk assessment: No Falls in past year Last assessed Fall Risk: 05/21/24 Dental Screening Dental Screen Date: 12/21/23 HPI f/u elevated fasting glucose HPI Details 73 y/o female presents to f/u elevated f asting glucose. Labs were drawn 05/15/24. Reviewed labs with pt. A1c 5.4%. 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 Mother No problems noted. Social History Housing: House Alcohol intake: current Alcohol intake frequency: holidays/special occasions only Patient Tobacco Use Status: Never used Tobacco e-Cigarette/Vaping Use: Never Used Second Hand Smoke Exposure: No service: No Current occupational status: retired Current occupational exposures/hazards: No Cognitive needs: No Hearing needs: No Vision needs: No Questionnaire Thrive Questionnaire Date Thrive assessed: 12/21/23 JAZMYN-7 AMB Questionnaire JAZMYN-7 Date JAZMYN - 7 assessed: 12/21/23 Source: Developed by Drs. Eusebio López, Ellie Palacios, Sachin Moncada and colleagues, with an educational yovani from [employer]. Review of Systems Const Denies chills, Denies fatigue, Denies fever(s), Denies headache(s) and Denies weakness ENT Denies dizziness and Denies headache(s) Card Denies dyspnea Resp Denies cough, Denies dyspnea, Denies wheezing and Denies other (shortness of breath) Musc Denies numbness and Denies tingling Neuro Denies dizziness, Denies headache(s), Denies numbness, Denies tingling and Denies weakness Psych Denies anxiety and Denies depression Endo Denies fatigue Aller/Immun Denies wheezing Physical exam (Primary Care) Vital Signs: Last Vital Signs Pulse 78 05/21/24 14:40 BP 112/72 05/21/24 14:40 Pulse Ox 97 05/21/24 14:40 Oxygen Delivery Method Room Air 05/21/24 14:40 BMI result Body Mass Index 24.5 Tobacco/Smoking Status: Tobacco use Status Tobacco use date assessed 05/21/24 05/21/24 14:43 Patient Tobacco Use Status Never used Tobacco 05/21/24 14:43 e-Cigarette/Vaping Use Never Used 05/21/24 14:43 Thrive Assessment: Date of Thrive Assessment Date Thrive assessed 12/21/23 05/21/24 14:43 Const General: well developed; No acute distress Nutritional Appearance: well nourished Orientation/consciousness: patient oriented x3 HENMT Head: Yes normocephalic and Yes atraumatic Eyes General: appearance normal, both eyes and all related structures Pupils: Equal, round and reactive pupils present EOM: EOMs intact bilaterally Resp Effort & Inspection: normal respiratory effort Auscultation: clear to auscultation bilaterally Cardio Rate: regular rate Rhythm: regular rhythm Heart sounds: S1 normal heart sound present, S2 normal heart sound present, no gallops, no murmurs and no rubs Neuro General: patient oriented x3 and gait normal Cranial nerves: Yes Equal, round and reactive pupils present Psych Affect: normal affect Assessment and Plan Assessment & Plan (1) Elevated fasting blood sugar: Code(s): R73.01 - Impaired fasting glucose Plan: A1c?5.4%?is?in?normal?range. Has?had?some?elevated?fasting?blood?sugars; likely?some?insulin?resistance Encouraged?diet?low?in?sugars?and?starches (2) Hematuria: Code(s): R31.9 - Hematuria, unspecified Plan: Again?urine?shows?rbc's?and?patient?notes?that?she?has?had?chronic?hematuria?wit h?extensive?workup?by?urologist?in?[place]. She?notes?that?she?has?had?cystoscopy?and?biopsies?as?well?as?CT?sc ans.??She?says?all?of?this?has?been?discontinued. Will?request?notes Medications: Refilled tramadol MassPat Verified. Partial refill upon request. 50 mg PO DAILY 30 days 30 tabs 0RF M48.00 - Spinal stenosis, site unspecified Coding Level of Care Code Est Pt Level 3 (11519) Diagnoses Elevated fasting blood sugar R73.01 Hematuria R31.9
== END 2024-05-21 15:10 | disposition home or self-care (01) ==
PROVIDERS: PCP Family Medicine; Visit Provider Family Medicine
DX: R73.01 Impaired fasting glucose (principal); R31.9 Hematuria, unspecified
CPT/HCPCS: 99213

== ENCOUNTER 2024-09-13 10:46 | Outpatient (AMB) | payer MEDICARE, SELFPAY ==
--- NOTE | 2024-09-13 10:59 | MHC.OFFWIV ---
Intake Vital Signs 09/13/24 11:05 Height 5 ft 3 in Weight 131 lb 8 oz BMI 23.3 BP 134/72 Blood Pressure Location Lt brachial Position Sitting Respiration 14 Pulse 78 Pulse Source Pulse Oximeter Temp 97.8 F Temp Source Oral Pulse Oximetry (%) 98 Oxygen Delivery Method Room Air Intake Visit Reasons: cough/post nasal drip Intake Note: Patient complaining of post nasal drip, upper right side on back pain and slight fever x1 week. Patient Tobacco Use Status: Never used Tobacco Allergies Penicillins Allergy (Verified 09/13/24 11:16) Rash Medication List - Last Reconciled 09/13/24 by Sydni Soriano, GENERAL COUNSELOR- aspirin (Ramesh Chewable Low Dose Aspirin) 81 mg PO DAILY atorvastatin 20 mg PO DAILY calcium carbonate ([place]) 168 mg PO TID cetirizine (All Day Allergy (cetirizine)) 10 mg PO DAILY PRN cholecalciferol (vitamin D3) 25 mcg PO DAILY dextromethorphan HBr 20 mg (15 mL) PO TID PRN 5 days gabapentin 300 mg PO BEDTIME 90 days ipratropium bromide 2 sprays intranasal BID lisinopril 20 mg PO DAILY meclizine 25 mg PO TID meloxicam 7.5 mg PO DAILY 30 days tramadol 50 mg PO DAILY 30 days HPI HPI Comments History of Present Illness Details 73-year-old female here today with complaints of URI sx. Sx include post nasal gtt, cough, low grade temp, mild sore throat from coughing and PND sx started about 1 week ago Using APAP daily to help Exam Awake alert NAD Sclera and conjunctiva clear bilat Nares mucoid d/c, turbinates edematous, + bilat maxillary sinus tenderness with palpation TM intact and clear bilat MMM, pharynx + PND RRR LS CTAB Plan She has chronic and recurrent sinusitis in an acute state today. Her allergy list includes penicillin however she reports that she was treated with Augmentin previously with no side effects. I reviewed her chart and this was prescribed in 2021. Given this I will prescribe this. Patient was educated on signs of an allergic reaction reasons to stop. Her symptoms should improve once she starts the antibiotics. Advised to take with food to avoid GI upset. Educated on reasons to return to the office This note is constructed using voice recognition software. While every effort has been made to ensure accuracy in customer support coordinator, still errors may have been included Sometimes, these errors may affect the content or meaning of the given sentence . [facility] Medical History [facility] (current) use of opiate analgesic Chronic pain syndrome Chronic sinusitis Surgical History History of tubal ligation History of cholecystectomy Family History Father No problems noted. Mother No problems noted. Social History Housing: House Alcohol intake: current Alcohol intake frequency: holidays/special occasions only Patient Tobacco Use Status: Never used Tobacco e-Cigarette/Vaping Use: Never Used Second Hand Smoke Exposure: No service: No Current occupational status: retired Current occupational exposures/hazards: No Cognitive needs: No Hearing needs: No Vision needs: No Physical Exam Vital Signs: Last Vital Signs Temp 97.8 F 09/13/24 11:05 Pulse 78 09/13/24 11:05 Resp 14 09/13/24 11:05 BP 134/72 09/13/24 11:05 Pulse Ox 98 09/13/24 11:05 Oxygen Delivery Method Room Air 09/13/24 11:05 BMI result Body Mass Index 23.3 Assessment & Plan Assessment & Plan (1) Acute bacterial sinusitis: Code(s): J01.90 - Acute sinusitis, unspecified; B96.89 - Other specified bacterial agents as the cause of diseases classified elsewhere Plan: . Medications: New amoxicillin-pot clavulanate 500-125 mg pt states she CAN take this; last time 2021 with no reactions. 1 tab PO BID 7 days 14 tabs 0RF Patient Instructions: What Is It? Sinuses are air-filled spaces behind the bones of the upper face: between the eyes and behind the forehead, nose and cheeks. The lining of the sinuses are made up of cells with tiny hairs on their surfaces called cilia. Other cells in the lining produce mucus. The mucus traps germs and pollutants and the cilia push the mucus out through narrow sinus openings into the nose. When the sinuses become inflamed or infected, the mucus thickens and clogs the openings to one or more sinuses. Fluid builds up inside the sinuses causing increased pressure. Also bacteria can become trapped, multiply and infect the lining. This is sinusitis. Prevention There are some measures you can take to decrease your risk of developing sinusitis. If you smoke cigarettes, you should quit. The smoke can irritate nasal passageways and increase the likelihood of infection. Nasal allergies can trigger sinus infections, too. By identifying the allergen (the substance causing the allergic reaction) and avoiding it, you can help prevent sinusitis. If you have congestion from a cold or allergies, the following may help to reduce the risk of developing sinusitis: Drink lots of water. This thins nasal secretions and keeps mucous membranes moist. Use steam to soothe nasal passages. Breathe deeply while standing in a hot shower, or inhale the vapor from a basin filled with hot water while holding a towel over your head. Avoid blowing your nose with great force, which can push bacteria into the sinuses. Some doctors advise periodic home nasal washings to clear secretions. This may help prevent, and also treat, sinus infections. Treatment Many sinus infections improve without treatment. However, several medications may speed recovery and reduce the chance that an infection will become chronic. Decongestants - Congestion often triggers sinus infections, and decongestants can open the sinuses and allow them to drain. Several are available: Pseudoephedrine (Sudafed) is available without prescription, alone or in combination with other medications in multi-symptom cold and sinus remedies. Pseudoephedrine can cause insomnia, racing pulse and jitteriness. Do not use if you have high blood pressure or a heart condition. Phenylephrine (such as Sudafed PE) is an alternative [id number] oral decongestant. If you take products containing oral phenylephrine, check with the pharmacist to be certain there is no interaction with other medications you take. Oxymetazoline (Radu Lopez and others) and phenylephrine (Cristino-Synephrine and others) are found in nasal sprays. They are effective and may be less likely to cause the side effects seen with pseudoephedrine. However, using a nasal decongestant for more than three days can cause worse symptoms when you stop the medication. This is called the rebound effect. Antihistamines - These medications help to relieve the symptoms of nasal allergies that lead to inflammation and infections. However, some doctors advise against using antihistamines during a sinus infection because they can cause excessive drying and slow the drainage process. Ecep-uii-binnjhm antihistamines include diphenhydramine (Benadryl and others), chlorpheniramine (Chlor-Trimeton and others) and loratadine (Claritin). Fexofenadine (Callie) and cetrizine (Zyrtec) are available by prescription. Nasal steroids - Anti-inflammatory sprays such as mometasone (Nasonex) and fluticasone (Flonase), both available by prescription, reduce swelling of nasal membranes. Like antihistamines, nasal steroids can be most useful for those who have nasal allergies. Nasal steroids tend to produce less drying than antihistamines. Unlike nasal decongestants, nasal steroids can be used for prolonged periods. Saline nasal sprays - These salt-water sprays are safe to use and can provide some relief by adding moisture to the nasal passages, thinning mucus secretions and helping to flush out any bacteria that may be present. Pain relievers - Acetaminophen (Tylenol), ibuprofen (Advil, Motrin and others) or naproxen (Aleve) can be taken sinus pain. Antibiotics - Your doctor may prescribe an antibiotic if he or she suspects that a bacterial infection is causing your sinusitis. If you start taking an antibiotic, complete the entire course so that the infection is completely killed off. Not all cases of sinusitis require antibiotic treatment: Talk with your doctor about whether an antibiotic is right for you. Keep in mind that antibiotics can cause side effects, such as allergic reactions, rash and diarrhea. In addition, overusing antibiotics eventually leads to the spread of bacteria that no longer can be killed by the most commonly prescribed antibiotics. When To Call A Professional Contact a doctor if you experience facial pain along with a headache and fever, cold symptoms that last longer than seven to 10 days, or persistent green discharge from the nose. If your symptoms don't improve within a week of beginning treatment, call your doctor. Call sooner if symptoms are getting worse. If you have repeated bouts of acute sinusitis, you may have allergies or another treatable cause of sinus congestion. Ask your doctor for advice. Coding Level of Care Code Est Pt Level 3 (37508) Diagnoses Acute bacterial sinusitis J01.90; B96.89
[2024-09-13 11:05] VITALS: BP 134/72; PULSE 78; RESP 14; TEMP 36.6; O2SAT 98; BMI 23.3
== END 2024-09-13 11:32 | disposition home or self-care (01) ==
LOC: HO.HMCFM 10:47
PROVIDERS: PCP Family Medicine; Visit Provider Nurse Practitioner Family
DX: J01.90 Acute sinusitis, unspecified (principal); B96.89 Other specified bacterial agents as the cause of diseases classified elsewhere

== ENCOUNTER → 2024-09-13 10:46 | Outpatient (BNVA) | payer MEDICARE, SELFPAY | PROVIDERS: PCP Family Medicine; Visit Provider Nurse Practitioner Family | DX: J01.90 Acute sinusitis, unspecified (principal); B96.89 Other specified bacterial agents as the cause of diseases classified elsewhere | CPT/HCPCS: 99212 ==

== ENCOUNTER 2024-09-23 08:47 | Outpatient (REF) | payer MEDICARE, SELFPAY ==
[2024-09-23 11:15] LABS: Appearance Urine Clear; Color Urine Yellow; Glucose Urine UA Negative (Negative); Leukocyte Esterase Urine Moderate (2+) (Negative); Nitrite Urine Negative (Negative); PH 7.5 (5.0-9.0); UMIC TRIGGER UA YES; Urine Blood Trace (Negative); Urine Ketones Negative (Negative); Urine Protein Negative (Neg-Trace)
[2024-09-23 11:26] LABS: Bacteria Urine None Seen (None Seen); Hyaline Casts Urine 0-2 /LPF (0-2); Squamous Epithelial Cell Urine 0-2 /HPF (0-2)
== END 2024-09-23 08:48 | disposition home or self-care (01) ==
LOC: HO.WFDLDS 08:47
PROVIDERS: Visit Provider Family Medicine
DX: Z00.00 Encounter for general adult medical examination without abnormal findings (principal)
CPT/HCPCS: 81001

== ENCOUNTER 2024-09-24 00:50 | Emergency (ER) | payer MEDICARE, SELFPAY ==
--- NOTE | ~2024-09-24 | CT_ITS ---
EXAMINATION: CT ABDOMEN AND PELVIS WITH CONTRAST CLINICAL INFORMATION: Gross hematuria. COMPARISON: None available. TECHNIQUE: Multidetector volumetric images were obtained from the superior aspect of the liver through the pubic symphysis following administration 85 mL of Omnipaque 350 intravenous contrast without reported immediate complications. Sagittal and coronal reformatted images were obtained on the technologist's workstation. Oral contrast: No This CT examination was performed using dose optimization techniques as appropriate, variously including the following: *Automated exposure control *Adjustment of mA and/or kV according to patient size (this includes techniques or standardized protocols for targeted exams where dose is matched to indication/reason for exam; i.e. extremities or head) *Use of iterative reconstruction technique DLP: 389 mGy-cm FINDINGS: LUNG BASES: No acute airspace disease or gross pulmonary nodules in the included lungs. LIVER, GALLBLADDER, AND BILIARY TREE: Liver measures 15 cm. There is a 1.5 cm portal venous phase enhancing lesion in the periphery of the right hepatic lobe. There are a few scattered subcentimeter hypodensities, the largest in the left hepatic lobe measures 1 cm. Portal vein, hepatic veins and intrahepatic portion of the IVC are patent. Status post cholecystectomy. Common bile duct measures 5 mm. PANCREAS: No focal pancreatic mass. No peripancreatic fluid collection. No main pancreatic ductal dilatation. SPLEEN: Measures 8 cm. No focal mass. ADRENAL GLANDS: Soft tissue fullness without nodular lesions. KIDNEYS AND URETERS: Right kidney: Multifocal lobulated well-defined fluid density lesions, the largest measures 3 cm in the upper pole/midportion. No gross renal mass or hydronephrosis. Left kidney: There are a few scattered nonenhancing fluid density lesions, the largest measures 1.2 cm in, exophytic midportion. No hydronephrosis. BLADDER: Fluid-filled. GASTROINTESTINAL TRACT: Abundant stool. No intestinal obstruction pattern. No ascites. No pneumoperitoneum. No pneumatosis intestinalis. Appendix is normal. ABDOMINAL WALL: No gross hernia. LYMPH NODES: Nonspecific prominent lymph nodes, mesenteric and retroperitoneal. VASCULAR: Mixed plaques throughout the abdominal aorta wall and iliac arteries without aneurysm or dissection. Calcified plaques in the origin of the main renal arteries. Calcified plaques in the splenic artery. PELVIC VISCERA: No gross masses in the adnexa or the uterus. Prominent pelvic veins. OSSEOUS STRUCTURES: Multilevel thoracolumbar spondylosis resulting in an levoconvex rotoscoliosis apex at L2-3. Grade 1 anterolisthesis L4-5 resulting in central spinal canal and bilateral neuroforamina stenosis. Grade 1 retrolisthesis L2-3 resulting in central spinal canal and bilateral neuroforamina stenosis. CT/CT abdomen pelvis w IV con IMPRESSION: No hydronephrosis or gross renal mass. Bilateral likely Bosniak type I cysts. Nephrolithiasis cannot be excluded. Probable flash hemangioma, right hepatic lobe. Probable cysts versus hamartoma, left hepatic lobe. Atherosclerosis disease. Multilevel thoracolumbar spondylosis more conspicuous at L4-5 and L2-3 levels. Fleischner guidelines were followed. Electronically signed by: Desean Salcido MD 09/24/2024 09:52 AM GONZALEZ
[2024-09-24 00:54] VITALS: BP 186/92; PULSE 90; RESP 18; TEMP 36.6; O2SAT 98; BMI 23.2
[2024-09-24 02:22] LABS: MANUAL DIFF FLAG NO
[2024-09-24 02:23] LABS: Basophils Percent Auto 0.3 % (0-2); Eosinophils Absolute Auto 0.1 X10*3/uL (0.0-0.4); Eosinophils Percent Auto 0.7 % (0-4); Hemoglobin 13.5 g/dl (12.0-16.0); Imm Gran Abs Auto 0.04 X10*3/uL (0.00-0.03); Imm Gran Pct Auto 0.3 % (0.0-0.4); Lymphocytes Absolute Auto 2.6 X10*3/uL (1.2-4.9); Lymphocytes Percent Auto 17.2 % (20-40); Mean Corpuscular HGB Conc 34.6 g/dl (31.0-35.0); Mean Corpuscular Hemoglobin 31.8 pg (27.0-33.0); Mean Platelet Volume 9.9 fL (9.4-12.3); Monocytes Absolute Auto 1.1 X10*3/uL (0.1-1.2); Monocytes Percent Auto 7.4 % (2-11); Neutrophils Absolute Auto 11.2 x10*3/uL (2.0-8.3); Neutrophils Percent Auto 74.1 % (45-73); Platelet Count 277 X10*3/uL (160-400); Red Blood Count 4.24 X10*6/uL (4.20-5.50); White Blood Count 15.1 X10*3/uL (4.8-10.8)
[2024-09-24 02:30] LABS: Prothrombin Time 11.5 SEC (10.9-12.4)
[2024-09-24 02:34] LABS: Appearance Urine Turbid; Color Urine RED; Glucose Urine UA 100 mg/dL (Negative); Leukocyte Esterase Urine Small (1+) (Negative); Nitrite Urine Positive (Negative); PH 6.5 (5.0-9.0); Specific Gravity - Urine 1.025 (1.005-1.025); UMIC TRIGGER UACC YES; Urine Blood Large (3+) (Negative); Urine Ketones Negative (Negative); Urine Protein 300 (3+) mg/dL (Neg-Trace)
[2024-09-24 02:37] LABS: Alanine Aminotransferase 19 U/L (0-31); Alkaline Phosphatase 109 U/L (39-117); Anion Gap 15 (12-20); Aspartate Amino Transferase 23 U/L (5-31); Bilirubin Total 0.5 mg/dL (0.0-1.0); Blood Urea Nitrogen 20 mg/dL (9-16); Calcium 9.8 mg/dL (8.4-10.2); Carbon Dioxide 25 mmol/L (22-29); Chloride 106 mmol/L (96-108); Creatinine Clr Calc Pharmacy 53.7; Estimated Glomerular Filt Rate > 60; Glucose Random 110 mg/dL (60-115); Potassium 4.4 mmol/L (3.3-5.1); Sodium 142 mmol/L (135-145); Total Protein 6.9 g/dL (6.5-8.0)
[2024-09-24 02:42] LABS: RBC Urine >20 /HPF (0-2); Squamous Epithelial Cell Urine 0-2 /HPF (0-2); UACC Culture Trigger YES
[2024-09-24 02:43] LABS: Bacteria Urine None Seen (None Seen); Hyaline Casts Urine 0-2 /LPF (0-2)
[2024-09-24 04:18] VITALS: BP 137/71; PULSE 88; RESP 18; O2SAT 97
[2024-09-24 08:10] VITALS: BP 148/74; PULSE 90; RESP 16; TEMP 37.4; O2SAT 99
--- NOTE | 2024-09-24 08:29 | ED_ITS ---
HPI - Female Genitourinary General Chief complaint: Urogenital-Female Stated complaint: Blood in urine Time Seen by Provider: 09/24/24 07:45 Source: patient Mode of arrival: ambulatory Limitations: no limitations History of Present Illness HPI Narrative: This is a chris 73 years old the patient presented to the emergency department with gross hematuria started last night. Denies otherwise any abdominal pain back pain. She has history of microscopic hematuria she was follow by urology service in [place] she moved here the a 4 years ago MD elicited complaint: other (hematuria) Pertinent past history: other (hx microscopic hematuria used to have cystoscopy in [place] ) Onset (ago): day(s) Severity: moderate Female Urogenital Radiation: Non-Radiating Consistency: constant Vaginal discharge: none Vaginal bleeding: none Urinary symptoms: Hematuria Exacerbating factors: none Relieving factors: none Associated symptoms: denies other symptoms Related Data Home Medications ?Medication ?Instructions ?Recorded ?Confirmed aspirin 81 mg chewable tablet 81 mg PO DAILY 11/26/20 09/13/24 (Ramesh Chewable Low Dose Aspirin) cetirizine 10 mg capsule (All Day 10 mg PO DAILY PRN 11/26/20 09/13/24 Allergy (cetirizine)) cholecalciferol (vitamin D3) 25 25 mcg PO DAILY 11/26/20 09/13/24 mcg (1,000 unit) capsule ipratropium bromide 21 mcg (0.03 2 spray intranasal BID 11/26/20 09/13/24 %) nasal spray meclizine 25 mg tablet 25 mg PO TID 11/26/20 09/13/24 calcium carbonate (Alcalak) 168 mg PO TID 09/13/24 09/13/24 Previous Rx's ?Medication ?Instructions ?Recorded dextromethorphan HBr 20 mg/15 mL 20 mg (15 mL) PO TID PRN cough 5 08/30/22 oral solution days #118 mL gabapentin 300 mg capsule 300 mg PO BEDTIME 90 days #90 caps 10/20/23 meloxicam 7.5 mg tablet 7.5 mg PO DAILY 30 days #90 tabs 07/08/24 atorvastatin 20 mg tablet 20 mg PO DAILY #90 tabs 08/02/24 lisinopril 20 mg tablet 20 mg PO DAILY #90 tabs 09/10/24 amoxicillin 500 mg-potassium 1 tab PO BID 7 days #14 tabs 09/13/24 clavulanate 125 mg tablet tramadol 50 mg tablet 50 mg PO DAILY 30 days #30 tabs 09/23/24 ciprofloxacin HCl 500 mg tablet 500 mg PO BID #10 tabs 09/24/24 (Cipro) Allergies Allergy/AdvReac Type Severity Reaction Status Date / Time Penicillins Allergy Rash Verified 09/24/24 00:56 Review of Systems 2 Constitutional: Constitutional: Reports no additional constitutional complaints ENT: Reports system reviewed and no additional complaints, except as documented Genitourinary: Genitourinary: Reports other (hematuria) [facility] Past Medical History Medical History FPC (current) use of opiate analgesic Chronic pain syndrome Chronic sinusitis Surgical History History of tubal ligation History of cholecystectomy Family History Family History Father No problems noted. Mother No problems noted. Social History Social History Housing: House Alcohol intake: current Alcohol intake frequency: holidays/special occasions only Patient Tobacco Use Status: Never used Tobacco e-Cigarette/Vaping Use: Never Used Second Hand Smoke Exposure: No Advance Directives: Yes Advance Directives Information Provided: Yes Advance Directives on File: No Do you have a plan to hurt others: No Plan service: No Current occupational status: retired Current occupational exposures/hazards: No Cognitive needs: No Hearing needs: No Vision needs: No Physical Exam 2 Vital Signs: Vital Signs: Last Vital Signs Temp 99.4 F 09/24/24 08:10 Pulse 90 09/24/24 08:10 Resp 16 09/24/24 08:10 BP 148/74 H 09/24/24 08:10 Pulse Ox 99 09/24/24 08:10 O2 Del Method Room Air 09/24/24 08:10 BMI result Body Mass Index 23.2 She looks well she is not on Const: General: cooperative Orientation/consciousness: patient oriented x3 HEENT: Head: Yes normal to inspection General nose exam: Normal external nose present Face and sinus: Yes normal facial exam Neck: Neck: Yes normal visual inspection Chest: Chest palpation & inspection: normal inspection of the chest Resp: Effort & Inspection: normal respiratory effort Auscultation: clear to auscultation bilaterally Cardio: Jugular venous distension: no JVD Rate: regular rate Rhythm: r egular rhythm GI: Inspection: Yes normal to inspection Palpation (GI): Soft to palpation, not firm and nontender Percussion: Yes normal to percussion Skin: General skin exam: no rashes or lesions noted and elasticity normal L esions: no lesions Rashes: no rashes Neuro: General: patient oriented x3 and no focal motor deficits Cranial nerves: Yes CN's II-XII intact bilaterally Course Reevaluation(s) Reevaluation #1: At this time she is doing better the urine is clear, hemoglobin is normal, CT scan of the abdomen and pelvis is reassuring I have discussed the case with the urologist Dr. Madhu Blackburn he will follow-up in the office for cystoscopy Time: 10:42 Medications Administered Discontinued Medications Generic Name Dose Route Start Last Admin Trade Name Freq PRN Reason Stop Dose Admin Iohexol 100 ml 09/24/24 08:59 09/24/24 09:00 Iohexol 350 Mg/Ml 100 Ml Infus..Btl IV 09/24/24 09:00 85 ml ONCE ONE Administration Medical Decision Making Medical Decision Making [facility] Narrative: Patient presented with gross hematuria will check labs UA Differential Diagnosis Differential Diagnoses: The differential diagnosis associated with the presentation includes Kidney stone/bladder tumor/kidney cancer Admission/Observation Consideration of admission/observation: Escalation of care including admission/observation considered Consult Healthcare Provider Management of the patient was discussed with: 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 09/24/24 02:17 09/24/24 02:17 Labs: Lab Results 09/24/24 Range/Units 02:17 WBC 15.1 H (4.8-10.8) X10*3/uL RBC 4.24 (4.20-5.50) X10*6/uL Hgb 13.5 (12.0-16.0) g/dl Hct 39.0 (37.0-47.0) % MCV 92.0 (80.0-98.0) fL MCH 31.8 (27.0-33.0) pg MCHC 34.6 (31.0-35.0) g/dl RDW 13.0 (11.0-16.0) % Plt Count 277 (160-400) X10*3/uL MPV 9.9 (9.4-12.3) fL Immature Gran % (Auto) 0.3 (0.0-0.4) % Neut % (Auto) 74.1 H (45-73) % Lymph % (Auto) 17.2 L (20-40) % [place] % (Auto) 7.4 (2-11) % Eos % (Auto) 0.7 (0-4) % Baso % (Auto) 0.3 (0-2) % Lymph # (Auto) 2.6 (1.2-4.9) X10*3/uL [place] # (Auto) 1.1 (0.1-1.2) X10*3/uL Eos # (Auto) 0.1 (0.0-0.4) X10*3/uL Baso # (Auto) 0.0 (0.0-0.2) X10*3/uL Abs Immat Gran (auto) 0.04 H (0.00-0.03) X10*3/uL Absolute Neuts (auto) 11.2 H (2.0-8.3) x10*3/uL Absolute Nucleated RBC 0.000 (0.0-0.012) X10*3/uL Nucleated RBC % (auto) 0.0 (0.0-0.2) /100WBC PT 11.5 (10.9-12.4) SEC INR 1.0 (0.9-1.1) Sodium 142 (135-145) mmol/L Potassium 4.4 (3.3-5.1) mmol/L Chloride 106 (96-108) mmol/L Carbon Dioxide 25 (22-29) mmol/L Anion Gap 15 (12-20) BUN 20 H (9-16) mg/dL Creatinine 0.76 (0.5-1.4) mg/dL Estim Creat Clear Calc 53.7 Estimated GFR > 60 Random Glucose 110 (60-115) mg/dL Calcium 9.8 (8.4-10.2) mg/dL Total Bilirubin 0.5 (0.0-1.0) mg/dL AST 23 (5-31) U/L ALT 19 (0-31) U/L Alkaline Phosphatase 109 (39-117) U/L Total Protein 6.9 (6.5-8.0) g/dL Albumin 4.0 (3.5-5.0) g/dL Urine Color RED Urine Appearance Turbid Urine pH 6.5 (5.0-9.0) Ur Specific [place] 1.025 (1.005-1.025) Urine Protein 300 (3+) H (Neg-Trace) mg/dL Urine Glucose (UA) 100 H (Negative) mg/dL Urine Ketones Negative (Negative) mg/dL Urine Blood Large (3+) H (Negative) Urine Nitrite Positive H (Negative) Ur Leukocyte Esterase Small (1+) H (Negative) Urine RBC >20 H (0-2) /HPF Urine WBC 6-10 (0-5) /HPF Ur Squamous Epith Cells 0-2 (0-2) /HPF Urine Bacteria None Seen (None Seen) Hyaline Casts 0-2 (0-2) /LPF Independent Interpretation I performed an independent interpretation of an: CT Scan Interpretation: No stones Radiology Impression Discussion of test interpretation with radiology: I have reviewed the radiologist's reading. Independent Historian Clinical information obtained from an independent historian. History obtained from or confirmed by: Spouse Discharge Plan Discharge Clinical Impression: Hematuria Qualifiers: Hematuria type: gross Qualified Code(s): R31.0 - Gross hematuria Patient Disposition: Home, Self-Care Instructions: Hematuria (ED) Additional Instructions: Please call urology office Dr. Blackburn make an appointment for follow-up return to the emergency room if you worse. Drink lots of fluids Prescriptions: New ciprofloxacin HCl [Cipro] 500 mg tablet 500 mg PO BID Qty: 10 0RF No Action gabapentin 300 mg capsule 300 mg PO BEDTIME 90 Days Qty: 90 3RF meloxicam 7.5 mg tablet 7.5 mg PO DAILY 30 Days Qty: 90 2RF atorvastatin 20 mg tablet 20 mg PO DAILY Qty: 90 3RF lisinopril 20 mg tablet 20 mg PO DAILY Qty: 90 0RF tramadol 50 mg tablet 50 mg PO DAILY 30 Days Qty: 30 0RF Rx Instructions: MassPat Verified. Partial refill upon request. meclizine 25 mg tablet 25 mg PO TID cholecalciferol (vitamin D3) 25 mcg (1,000 unit) capsule 25 mcg PO DAILY aspirin [Ramesh Chewable Aspirin] 81 mg tablet,chewable 81 mg PO DAILY ipratropium bromide 0.03 % spray,non-aerosol 2 spray intranasal BID Rx Instructions: administer into each nostril All Day Allergy (cetirizine) 10 mg capsule 10 mg PO DAILY PRN dextromethorphan HBr 20 mg/15 mL solution 20 mg PO TID PRN (Reason: cough) 5 Days Qty: 118 1RF Alcalak 168 mg calcium (420 mg) tablet,chewable 168 mg PO TID amoxicillin-pot clavulanate 500-125 mg tablet 1 tab PO BID 7 Days Qty: 14 0RF Rx Instructions: pt states she CAN take this; last time 2021 with no reactions. Referrals: Madhu Blackburn MD [Physician] - 3 days Print Language: Andorran
[2024-09-24] MEDS: iohexoL 350 MG/ML 100 ML INFUS..BTL IV (09:00)
[2024-09-24 11:02] VITALS: BP 148/74; PULSE 90; RESP 16; TEMP 37.4; O2SAT 99
== END 2024-09-24 11:03 | disposition home or self-care (01) ==
PROVIDERS: Emergency Provider Emergency Medicine; PCP Family Medicine
DX: R31.0 Gross hematuria (principal); Z79.899 Other long term (current) drug therapy
CPT/HCPCS: 36415; 74177; 80053; 81001; 85025; 85610; 87086; 87088; 87186; 99283; 99284; Q9967

== ENCOUNTER → 2024-09-24 08:13 | Outpatient (BNV) | payer MEDICARE, SELFPAY | PROVIDERS: Emergency Provider Emergency Medicine; PCP Family Medicine; Visit Provider Radiology Diagnostic Radiology | DX: R31.0 Gross hematuria (principal) | CPT/HCPCS: 74177 ==

== ENCOUNTER 2024-09-26 11:21 | Outpatient (AMB) | payer MEDICARE, SELFPAY ==
--- NOTE | 2024-09-26 12:34 | MHC.PC.OV ---
Vital Signs 09/26/24 12:41 Weight 130 lb 2 oz BP 134/60 Blood Pressure Location Rt brachial Position Sitting Respiration 14 Pulse 77 Pulse Source Pulse Oximeter Temp 98.6 F Temp Source Oral Pulse Oximetry (%) 99 Oxygen Delivery Method Room Air Intake Visit Reasons: f/u chronic conditions Intake Note: f/u HTN, HEMATURIA A1C Allergies Penicillins Allergy (Verified 09/26/24 12:39) Rash Medication List - Last Reconciled 09/26/24 by Bacilio Vee MD aspirin (Ramesh Chewable Low Dose Aspirin) 81 mg PO DAILY atorvastatin 20 mg PO DAILY calcium carbonate (Alcalak) 168 mg PO TID cetirizine (All Day Allergy (cetirizine)) 10 mg PO DAILY PRN cholecalciferol (vitamin D3) 25 mcg PO DAILY ciprofloxacin HCl (Cipro) 500 mg PO BID dextromethorphan HBr 20 mg (15 mL) PO TID PRN 5 days gabapentin 300 mg PO BEDTIME 90 days ipratropium bromide 2 sprays intranasal BID lisinopril 20 mg PO DAILY meclizine 25 mg PO TID meloxicam 7.5 mg PO DAILY 30 days tramadol 50 mg PO DAILY 30 days Tobacco use date assessed: 05/21/24 Dental Screening Dental Screen Date: 12/21/23 HPI f/u chronic conditions HPI Details 73 y/o female presents to f/u hypertension, chronic conditions. Recent ED visit 09/24/24 for hematuria. Was given ciprofloxacin 500mg b.i.d. Recommended she call Urology for f/u appt. Notes symptoms improved. Blood pressure today 134/60, 77p. She is on lisinopril 20mg. Last A1c 5.4%. HPI Comments History of Present Illness Details Documentation assistance for Bacilio Vee MD, was provided by Nas Vaughn, Theatre Arts Professor on 09/26/2024 at 1:24 PM EST. I, Dr. Vee, have read, observed, and verified documentation. 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 Mother No problems noted. Social History Housing: House Alcohol intake: current Alcohol intake frequency: holidays/special occasions only Patient Tobacco Use Status: Never used Tobacco e-Cigarette/Vaping Use: Never Used Second Hand Smoke Exposure: No service: No Current occupational status: retired Current occupational exposures/hazards: No Cognitive needs: No Hearing needs: No Vision needs: No Questionnaire Thrive Questionnaire Date Thrive assessed: 09/13/24 I am a: Patient What is your living situation today?: I choose not to answer this question Within the past 12 months, did the food you bought not last and you didn't have the money to get more?: Often true Within the past 12 months, did you worry whether your food would run out before you got money to buy more?: Never true Do you have trouble paying for medicines?: No Do you have trouble getting transportation to medical appointments?: No Do you have trouble paying your heating and electricity bill?: No Do you have trouble taking care of your child, family member or friend?: I choose not to answer this question Do you have trouble with day-to-day activities such as bathing, preparing meals, shopping, managing finances, etc.?: No Are you currently unemployed and looking for a job?: No Are you interested in more education?: No Please select the resources that you would like help with: None Currently or been in a relationship where the following occur: No concerns reported THRIVE Score: 1 JAZMYN-7 AMB Questionnaire JAZMYN-7 Date JAZMYN - 7 assessed: 12/21/23 Source: Developed by Drs. Eusebio López, Ellie Palacios, Sachin Moncada and colleagues, with an educational yovani from [employer]. Review of Systems Const Denies chills, Denies fatigue, Denies fever(s), Denies headache(s) and Denies weakness ENT Denies dizziness and Denies headache(s) Card Denies dyspnea Resp Denies cough, Denies dyspnea, Denies wheezing and Denies other (shortness of breath) Musc Denies numbness and Denies tingling Neuro Denies dizziness, Denies headache(s), Denies numbness, Denies tingling and Denies weakness Psych Denies anxiety and Denies depression Endo Denies fatigue Aller/Immun Denies wheezing Physical exam (Primary Care) Vital Signs: Last Vital Signs Temp 98.6 F 09/26/24 12:41 Pulse 77 09/26/24 12:41 Resp 14 09/26/24 12:41 BP 134/60 09/26/24 12:41 Pulse Ox 99 09/26/24 12:41 Oxygen Delivery Method Room Air 09/26/24 12:41 Tobacco/Smoking Status: Tobacco use Status Tobacco use date assessed 05/21/24 09/26/24 12:35 Patient Tobacco Use Status Never used Tobacco 09/26/24 12:35 e-Cigarette/Vaping Use Never Used 09/26/24 12:35 Thrive Assessment: Date of Thrive Assessment Date Thrive assessed 09/13/24 09/26/24 12:35 Currently or been in a relationship where the following occur: No concerns reported Const General: well developed; No acute distress Nutritional Appearance: well nourished Orientation/consciousness: patient oriented x3 HENMT Head: Yes normocephalic and Yes atraumatic Eyes General: appearance normal, both eyes and all related structures Pupils: Equal, round and reactive pupils present EOM: EOMs intact bilaterally Resp Effort & Inspection: normal respiratory effort Auscultation: clear to auscultation bilaterally Cardio Rate: regular rate Rhythm: regular rhythm Heart sounds: S1 normal heart sound present, S2 normal heart sound present, no gallops, no murmurs and no rubs Neuro General: patient oriented x3 and gait normal Cranial nerves: Yes Equal, round and reactive pupils present Psych Affect: normal affect Coding Level of Care Code Est Pt Level 3 (20606) Diagnoses Essential hypertension I10 Complicated UTI (urinary tract infection) N39.0 Hematuria R31.9 Elevated fasting blood sugar R73.01 Assessment & Plan Assessment & Plan (1) Essential hypertension: Code(s): I10 - Essential (primary) hypertension Category: Medical Plan: Blood?pressure?is?controlled.??Goal?is?less?than?140/90 Continue?lisinopril (2) Complicated UTI (urinary tract infection): Code(s): N39.0 - Urinary tract infection, site not specified Category: Medical Plan: Patient?recently?went?to?the?ED?with?chills?and?gross?hematuria. White?blood?cell?count?15 She?was?passing?blood?and?clots. Urine?culture?shows?E?coli?sensitive?for?Cipro?which?was?provided?at?the?emergency?department?x5?days. Will?extend?antibiotic?therapy?as?she?appears?to?have?a?complicated?UTI?but?would?like?to?avoid?extending?usage?of?Cipro. She?will?complete?5?day?course?of?Cipro?and?start?Macrobid?times?an?additional?5?days. Continue?to?hydrate?well?and?urinate?frequently She?has?an?appointment?with?Urology?but?will?let?me?know?if?urine?blood?is?not?resolving?or?she?has?any?new?symptoms?or?current?symptoms?are?not?resolving. (3) Hematuria: Code(s): R31.9 - Hematuria, unspecified Category: Medical Plan: As?above Patient?has?a?long-term?history?of?microscopic?hematuria. She?notes?that?this?has?had?extensive?workup?on?multiple?occasions We?will?continue?to?monitor. Currently?has?gross?hematuria?secondary?to?above?urinary?tract?infection. Follow-up?with?urology (4) Elevated fasting blood sugar: Code(s): R73.01 - Impaired fasting glucose Category: Medical Plan: Elevated?fasting?blood?sugar Recent?illness Encouraged?diet?lower?in?sugars?and?starches Will?recheck?at?next?visit?in?about?3?months Medications: New nitrofurantoin monohyd/m-cryst 100 mg (Macrobid) must administer with a meal/food 100 mg PO BID 14 caps 0RF 7 days Refilled gabapentin 300 mg PO BEDTIME 90 caps 3RF 90 days
[2024-09-26 12:41] VITALS: BP 134/60; PULSE 77; RESP 14; TEMP 37; O2SAT 99
== END 2024-09-26 13:29 | disposition home or self-care (01) ==
PROVIDERS: PCP Family Medicine; Visit Provider Family Medicine
DX: I10 Essential (primary) hypertension (principal); N39.0 Urinary tract infection, site not specified; R31.9 Hematuria, unspecified; R73.01 Impaired fasting glucose

== ENCOUNTER → 2024-09-26 11:21 | Outpatient (BNVA) | payer MEDICARE, SELFPAY | PROVIDERS: PCP Family Medicine; Visit Provider Family Medicine | DX: I10 Essential (primary) hypertension (principal); N39.0 Urinary tract infection, site not specified; R31.9 Hematuria, unspecified; R73.01 Impaired fasting glucose | CPT/HCPCS: 99212 ==

== ENCOUNTER 2024-11-14 14:23 | Outpatient (REF) | payer MEDICARE, SELFPAY ==
[2024-11-14 16:20] LABS: Urine Cytology See Pathology rpt
== END 2024-11-14 14:24 | disposition home or self-care (01) ==
LOC: HO.LAB 14:23
PROVIDERS: PCP Family Medicine; Visit Provider Urology
DX: N39.0 Urinary tract infection, site not specified (principal); R31.0 Gross hematuria; Z87.442 Personal history of urinary calculi; N28.1 Cyst of kidney, acquired
CPT/HCPCS: 51798; 81003; 88112; 99202

== ENCOUNTER 2024-11-14 14:23 | Outpatient (AMB) | payer MEDICARE, SELFPAY ==
--- NOTE | 2024-11-13 20:27 | MHC.OFFVIS ---
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 The patient states she had symptoms of a UTI urgency and pressure and within hours she had blood in the urine and. She went to the emergency room. I have reviewed CT imaging no suspicious renal masses noted. Urine culture was sent and came back all with E coli, pansensitive. Yissel states that in the past she has had microscopic hematuria was seen by urologist for about 10 years. States that they were following 'something in the bladder' with a CT scan that did not change. She does not recall having a cystoscopy. History of kidney stones. Denies history of nicotine use. She complains of urinary urgency. She feels that she urinates through her vagina but denies being wet all time. Urine for cytology Follow-up office cystoscopy pelvic. CTAP w IV contrast --09/24/24-- type 1 renal cysts bilaterally. No hydronephrosis or gross renal mass. Bilateral likely Bosniak type I cysts. Nephrolithiasis cannot be excluded. [facility] Medical History [facility] (current) use of opiate analgesic Chronic pain syndrome Chronic sinusitis Surgical History History of tubal ligation History of cholecystectomy Family History Father No problems noted. Mother No problems noted. Social History Housing: House Alcohol intake: current Alcohol intake frequency: holidays/special occasions only Patient Tobacco Use Status: Never used Tobacco e-Cigarette/Vaping Use: Never Used Second Hand Smoke Exposure: No service: No Current occupational status: retired Current occupational exposures/hazards: No Cognitive needs: No Hearing needs: No Vision needs: No Review of Systems Const All systems reviewed & are unremarkable except as noted in HPI and below Reports no additional complaints Eyes Reports no additional complaints ENT Reports no additional complaints Card Reports no additional complaints Resp Reports no additional complaints GI Reports no additional complaints Reports as per HPI Musc Reports no additional complaints Skin/Breast Reports system reviewed and no additional complaints, except as documented Neuro Reports no additional complaints Psych Reports no additional complaints Endo Reports no additional complaints Dilshad/Lymph Reports no additional complaints Aller/Immun Reports no additional complaints Physical Exam Const General: cooperative, healthy appearing and no acute distress Orientation/consciousness: patient oriented x3 HEENT Head: Yes normal to inspection, Yes normocephalic and Yes atraumatic Eyes Conjunctivae: conjunctivae normal Neck Neck: Yes normal visual inspection and Yes trachea midline Chest Chest palpation & inspection: normal inspection of the chest Resp Effort & Inspection: normal respiratory effort Cardio Rate: regular rate GI Inspection: Yes normal to inspection Skin General skin exam: no rashes or lesions noted Neuro General: patient oriented x3 Psych Appearance: grossly normal Office Procedures Post Void Residual Post Residual Void Post Void Residual (PVR): 0 [id number] Void Residual by ultrasound Results AMB Urinalysis, Automated UA Leukoctes 0 Reva/uL Last Edit by ANGELA Huffman on 11/14/24 14:43 UA Nitrite Negative Last Edit by ANGELA Huffman on 11/14/24 14:43 UA Urobilinogen 0.2 mg/dL Last Edit by ANGELA Huffman on 11/14/24 14:43 UA Protein 0 mg/dL Last Edit by ANGELA Huffman on 11/14/24 14:43 UA pH 7.5 Last Edit by ANGELA Huffman on 11/14/24 14:43 UA Blood 25 Conrad/uL Last Edit by ANGELA Huffman on 11/14/24 14:43 UA Specific [place] 1.015 Last Edit by ANGELA Huffman on 11/14/24 14:43 UA Ketone Negative Last Edit by ANGELA Huffman on 11/14/24 14:43 UA Bilirubin 0 mg/dL Last Edit by ANGELA Huffman on 11/14/24 14:43 UA Glucose 0 mg/dL Last Edit by ANGELA Huffman on 11/14/24 14:43 Results Reviewed Results Reviewed: Laboratory Last Values Urine pH (Auto) 7.5 11/14/24 14:42 Specific [place] (Auto) 1.015 11/14/24 14:42 Urine Protein (Auto) 0 mg/dL 11/14/24 14:42 Glucose (UA)(Auto) 0 mg/dL 11/14/24 14:42 Urine Ketones (Auto) Negative 11/14/24 14:42 Urine Blood (Auto) 25 Conrad/uL 11/14/24 14:42 Urine Nitrite (Auto) Negative 11/14/24 14:42 Urine Bilirubin (Auto) 0 mg/dL 11/14/24 14:42 Urine Urobilinogen (Auto) 0.2 mg/dL 11/14/24 14:42 Leukocyte Esterase (Auto) 0 Reva/uL 11/14/24 14:42 Date of Service: 09/24/24 CT ABDOMEN AND PELVIS WITH CONTRAST CLINICAL INFORMATION: Gross hematuria. COMPARISON: None available. TECHNIQUE: Multidetector volumetric images were obtained from the superior aspect of the liver through the pubic symphysis following administration 85 mL of Omnipaque 350 intravenous contrast without reported immediate complications. Sagittal and coronal reformatted images were obtained on the technologist's workstation. Oral contrast: No This CT examination was performed using dose optimization techniques as appropriate, variously including the following: *Automated exposure control *Adjustment of mA and/or kV according to patient size (this includes techniques or standardized protocols for targeted exams where dose is matched to indication/reason for exam; i.e. extremities or head) *Use of iterative reconstruction technique DLP: 389 mGy-cm FINDINGS: LUNG BASES: No acute airspace disease or gross pulmonary nodules in the included lungs. LIVER, GALLBLADDER, AND BILIARY TREE: Liver measures 15 cm. There is a 1.5 cm portal venous phase enhancing lesion in the periphery of the right hepatic lobe. There are a few scattered subcentimeter hypodensities, the largest in the left hepatic lobe measures 1 cm. Portal vein, hepatic veins and intrahepatic portion of the IVC are patent. Status post cholecystectomy. Common bile duct measures 5 mm. PANCREAS: No focal pancreatic mass. No peripancreatic fluid collection. No main pancreatic ductal dilatation. SPLEEN: Measures 8 cm. No focal mass. ADRENAL GLANDS: Soft tissue fullness without nodular lesions. KIDNEYS AND URETERS: Right kidney: Multifocal lobulated well-defined fluid density lesions, the largest measures 3 cm in the upper pole/midportion. No gross renal mass or hydronephrosis. Left kidney: There are a few scattered nonenhancing fluid density lesions, the largest measures 1.2 cm in, exophytic midportion. No hydronephrosis. BLADDER: Fluid-filled. GASTROINTESTINAL TRACT: Abundant stool. No intestinal obstruction pattern. No ascites. No pneumoperitoneum. No pneumatosis intestinalis. Appendix is normal. ABDOMINAL WALL: No gross hernia. LYMPH NODES: Nonspecific prominent lymph nodes, mesenteric and retroperitoneal. VASCULAR: Mixed plaques throughout the abdominal aorta wall and iliac arteries without aneurysm or dissection. Calcified plaques in the origin of the main renal arteries. Calcified plaques in the splenic artery. PELVIC VISCERA: No gross masses in the adnexa or the uterus. Prominent pelvic veins. OSSEOUS STRUCTURES: Multilevel thoracolumbar spondylosis resulting in an levoconvex rotoscoliosis apex at L2-3. Grade 1 anterolisthesis L4-5 resulting in central spinal canal and bilateral neuroforamina stenosis. Grade 1 retrolisthesis L2-3 resulting in central spinal canal and bilateral neuroforamina stenosis. IMPRESSION: No hydronephrosis or gross renal mass. Bilateral likely Bosniak type I cysts. Nephrolithiasis cannot be excluded. Probable flash hemangioma, right hepatic lobe. Probable cysts versus hamartoma, left hepatic lobe. Atherosclerosis disease. Multilevel thoracolumbar spondylosis more conspicuous at L4-5 and L2-3 levels. Collected: 09/24/24-UNK Status: COMP Req#: [id number] Received: 09/24/24 Source: [facility] Sp Desc: Clean Cat Subm Dr: Generic ED Physician Ordered: Urine Culture Procedure Result Verified Urine Culture Final 09/26/24 Organism 1 Escherichia coli Quant > 100,000 cfu/mL E coli M.I.C. RX --------- --- Ampicillin >=32 R Cefazolin 16 S Cefepime <=0.12 S Ceftriaxone <=0.25 S Ciprofloxacin <=0.06 S Gentamicin <=1 S Nitrofurantoin <=16 S Trimethoprim/Sulfamethoxazole <=20 S Assessment & Plan Assessment & Plan (1) Complicated UTI (urinary tract infection): Code(s): N39.0 - Urinary tract infection, site not specified Category: Medical (2) Gross hematuria: Code(s): R31.0 - Gross hematuria Category: Medical (3) History of kidney stones: Code(s): Z87.442 - Personal history of urinary calculi Category: Medical (4) Bilateral renal cysts: Code(s): N28.1 - Cyst of kidney, acquired Category: Medical Plan Gross hematuria. Complicated UTI. Denies history of nicotine use. Urine cytology. Office cystoscopy Orders: Orders AMB Urinalysis Automated Today Z13.9 - Encounter for screening, unspecified Patient Instructions: The patient had an opportunity to ask questions regarding treatment plan. The patient expressed understanding and agreement with the above treatment plan. The patient is aware they should contact our office by phone for worsening of their current condition or the appearance of new symptoms. Compliance is encouraged with any medications and followup testing that is ordered. It is a privilege to be allowed the opportunity to participate in the urologic care of your patient. If you have any questions or concerns regarding treatment for the above conditions please do not hesitate to contact me. The office telephone contact is [phone]. This note is constructed in part using voice recognition software. While every effort has been made to ensure accuracy histologic technician errors may have been included. Yours sincerely, Sanjay Betancur MD Coding Level of Care Code New Pt Level 4 (43446) Diagnoses Complicated UTI (urinary tract infection) N39.0 Gross hematuria R31.0 History of kidney stones Z87.442 Bilateral renal cysts N28.1 CPT Codes Post Residual Void - PVR CPT Code: 89386-Cqbj Void Residual by ultrasound ([id number])
== END 2024-11-14 15:17 | disposition home or self-care (01) ==
PROVIDERS: PCP Family Medicine; Visit Provider Urology
DX: N39.0 Urinary tract infection, site not specified (principal); R31.0 Gross hematuria; Z87.442 Personal history of urinary calculi; N28.1 Cyst of kidney, acquired; Z13.9 Encounter for screening, unspecified
CPT/HCPCS: 99204

== ENCOUNTER 2024-12-27 10:26 | Outpatient (AMB) | payer MEDICARE, SELFPAY ==
--- NOTE | 2024-12-27 11:07 | A.OFFPC_ITS ---
Vital Signs 12/27/24 11:10 Height 5 ft 3 in Weight 132 lb 2 oz BMI 23.4 BP 130/76 Blood Pressure Location Lt brachial Position Sitting Respiration 14 Pulse 73 Pulse Source Pulse Oximeter Temp 98.0 F Temp Source Oral Pulse Oximetry (%) 98 Oxygen Delivery Method Room Air Intake Visit Reasons: f/u hypertension, blood sugars Intake Note: htn and a1c follow up Allergies Penicillins Allergy (Verified 12/27/24 11:08) Rash Medication List - Last Reconciled 12/27/24 by Bacilio Vee MD aspirin (Ramesh Chewable Low Dose Aspirin) 81 mg PO DAILY atorvastatin 20 mg PO DAILY calcium carbonate ([place]) 168 mg PO TID cetirizine (All Day Allergy (cetirizine)) 10 mg PO DAILY PRN cholecalciferol (vitamin D3) 25 mcg PO DAILY dextromethorphan HBr 20 mg (15 mL) PO TID PRN 5 days gabapentin 300 mg PO BEDTIME 90 days lisinopril 20 mg PO DAILY meclizine 25 mg PO TID 10 days meloxicam 7.5 mg PO DAILY 30 days tramadol 50 mg PO DAILY 30 days Tobacco use date assessed: 05/21/24 Dental Screening Dental Screen Date: 12/21/23 HPI f/u hypertension, blood sugars HPI Details 74 y/o female presents to f/u HTN, blood sugars. A1c today 12/27/24 5.7% - prediabetes range. Blood pressure today 130/76, 73p. She is on lisinopril 20mg daily. [facility] Medical History shelter (current) use of opiate analgesic Chronic pain syndrome Chronic sinusitis Surgical History History of tubal ligation History of cholecystectomy Family History Father No problems noted. Mother No problems noted. Social History Housing: House Alcohol intake: current Alcohol intake frequency: holidays/special occasions only Patient Tobacco Use Status: Never used Tobacco e-Cigarette/Vaping Use: Never Used Second Hand Smoke Exposure: No service: No Current occupational status: retired Current occupational exposures/hazards: No Cognitive needs: No Hearing needs: No Vision needs: No Questionnaire PHQ-9 Over the last 2 weeks, how often have you been bothered by any of the following problems? 1. Little interest or pleasure in doing things: not at all 2. Feeling down, depressed, or hopeless: not at all 3. Trouble falling or staying asleep, or sleeping too much: not at all 4. Feeling tired or having little energy: not at all 5. Poor appetite or overeating: not at all 6. Feeling bad about yourself - or that you are a failure or have let yourself or your family down: not at all 7. Trouble concentrating on things, such as reading the newspaper or watching television: not at all 8. Moving or speaking so slowly that other people could have noticed. Or the opposite - being so fidgety or restless that you have been moving around a lot more than usual: not at all 9. Thoughts that you would be better off or of hurting yourself in some way: not at all Total score: 0 Source: Developed by Drs. Eusebio López, Ellie Palacios, Sachin Moncada and colleagues, with an educational yovani from [employer]. Thrive Questionnaire Date Thrive assessed: 12/20/24 I am a: Patient What is your living situation today?: I have a steady place to live Within the past 12 months, did the food you bought not last and you didn't have the money to get more?: Never true Within the past 12 months, did you worry whether your food would run out before you got money to buy more?: Never true Do you have trouble paying for medicines?: No Do you have trouble getting transportation to medical appointments?: No Do you have trouble paying your heating and electricity bill?: No Do you have trouble taking care of your child, family member or friend?: No Do you have trouble with day-to-day activities such as bathing, preparing meals, shopping, managing finances, etc.?: No Are you currently unemployed and looking for a job?: No Are you interested in more education?: No Please select the resources that you would like help with: None Currently or been in a relationship where the following occur: No concerns reported THRIVE Score: 0 AUDIT C Alcohol Use Questionnaire (AUDIT-C) 1. How often do you have a drink containing alcohol?: Never Total Score: 0 JAZMYN-7 AMB Questionnaire JAZMYN-7 Date JAZMYN - 7 assessed: 12/21/23 Feeling nervous, anxious, or on edge: 0 = Not at all Not being able to stop or control worryin = Not at all Worrying too much about different things: 0 = Not at all Trouble relaxin = Not at all Being so restless that it is hard to sit still: 0 = Not at all Becoming easily annoyed or irritable: 0 = Not at all Feeling afraid as if something awful might happen: 0 = Not at all Total JAZMYN-7 score (0-4 normal; 5-9 mild; 10-14 moderate; 15-21 severe): 0 Source: Developed by Drs. Eusebio López, Ellie Palacios, Sachin Moncada and colleagues, with an educational yovani from [employer]. Review of Systems Const Denies chills, Denies fatigue, Denies fever(s), Denies headache(s) and Denies weakness ENT Denies dizziness and Denies headache(s) Card Denies dyspnea Resp Denies cough, Denies dyspnea, Denies wheezing and Denies other (shortness of breath) Musc Denies numbness and Denies tingling Neuro Denies dizziness, Denies headache(s), Denies numbness, Denies tingling and Denies weakness Psych Denies anxiety and Denies depression Endo Denies fatigue Aller/Immun Denies wheezing Physical exam (Primary Care) Vital Signs: Last Vital Signs Temp 98.0 F 12/27/24 11:10 Pulse 73 12/27/24 11:10 Resp 14 12/27/24 11:10 BP 130/76 12/27/24 11:10 Pulse Ox 98 12/27/24 11:10 Oxygen Delivery Method Room Air 12/27/24 11:10 BMI result Body Mass Index 23.4 Tobacco/Smoking Status: Tobacco use Status Tobacco use date assessed 05/21/24 12/27/24 11:13 Patient Tobacco Use Status Never used Tobacco 12/27/24 11:13 e-Cigarette/Vaping Use Never Used 12/27/24 11:13 PHQ-9: PHQ-9 Score PHQ-9: Total score 0 12/27/24 12:01 Thrive Assessment: Date of Thrive Assessment Date Thrive assessed 12/20/24 12/27/24 11:13 Currently or been in a relationship where the following occur: No concerns reported Const General: well developed; No acute distress Nutritional Appearance: well nourished Orientation/consciousness: patient oriented x3 HENMT Head: Yes normocephalic and Yes atraumatic Eyes General: appearance normal, both eyes and all related structures Pupils: Equal, round and reactive pupils present EOM: EOMs intact bilaterally Resp Effort & Inspection: normal respiratory effort Neuro General: patient oriented x3 and gait normal Cranial nerves: Yes Equal, round and reactive pupils present Psych Affect: normal affect Results AMB Hemoglobin A1c AMB Hemoglobin A1c 5.7 % Last Edit by Beck Rose CMA on 12/27/24 11:20 Results Reviewed Results Reviewed: Laboratory Last Values Hgb A1c (Clinic) 5.7 % (4.0-6.0) 12/27/24 11:14 Coding Level of Care Code Est Pt Level 3 (68366) Diagnoses Essential hypertension I10 Pre-diabetes R73.03 Hyperlipidemia E78.5 Assessment & Plan Assessment & Plan (1) Essential hypertension: Code(s): I10 - Essential (primary) hypertension Category: Medical Plan: Blood?pressure?is?controlled.??Goal?is?less?than?140/90 Continue?current?medication (2) Pre-diabetes: Code(s): R73.03 - Prediabetes Category: Medical Plan: A1c?at?5.7%;?pre?diabetes Encouraged?ongoing?work?at?a?diet?low?sugars?and?starches Maintain?healthy?weight Encouraged?exercise Will?continue?to?monitor (3) Hyperlipidemia: Code(s): E78.5 - Hyperlipidemia, unspecified Category: Medical Plan: She?is?on?atorvastatin?20?mg?daily Will?check?lipids?today?and?we?can?follow-up?on?this?at?her?next?visit Orders: Orders Lipid Panel Today Z00.00 - Encounter for general adult medical examination without abnormal findings AMB Hemoglobin A1c Today R73.01 - Impaired fasting glucose Comprehensive [place]. Panel Fast Today Z00.00 - Encounter for general adult medical examination without abnormal findings
[2024-12-27 11:10] VITALS: BP 130/76; PULSE 73; RESP 14; TEMP 36.7; O2SAT 98; BMI 23.4
== END 2024-12-27 12:15 | disposition home or self-care (01) ==
PROVIDERS: PCP Family Medicine; Visit Provider Family Medicine
DX: I10 Essential (primary) hypertension (principal); R73.03 Prediabetes; E78.5 Hyperlipidemia, unspecified; R73.01 Impaired fasting glucose

== ENCOUNTER 2024-12-27 12:18 | Outpatient (REF) | payer MEDICARE, SELFPAY ==
[2024-12-27 14:43] LABS: Alanine Aminotransferase 19 U/L (0-31); Albumin Level 4.3 g/dL (3.5-5.0); Alkaline Phosphatase 100 U/L (39-117); Anion Gap 9 (12-20); Aspartate Amino Transferase 25 U/L (5-31); Bilirubin Total 0.6 mg/dL (0.0-1.0); Blood Urea Nitrogen 18 mg/dL (9-16); Calcium 9.6 mg/dL (8.4-10.2); Carbon Dioxide 29 mmol/L (22-29); Chloride 105 mmol/L (96-108); Cholesterol 161 mg/dL (<200); Estimated Glomerular Filt Rate > 60; Glucose Fasting 102 mg/dL (60-99); HDL Cholesterol 83 mg/dL (>40); LDL Cholesterol Calculated 65 mg/dL (<100); Potassium 4.4 mmol/L (3.3-5.1); Sodium 139 mmol/L (135-145); Total Protein 7.5 g/dL (6.5-8.0); Triglycerides 66 mg/dL (<150)
== END 2024-12-27 12:19 | disposition home or self-care (01) ==
LOC: HO.WFDLDS 12:18
PROVIDERS: Visit Provider Family Medicine
DX: I10 Essential (primary) hypertension (principal); R73.03 Prediabetes; E78.5 Hyperlipidemia, unspecified
CPT/HCPCS: 36415; 80053; 80061; 83036; 99212

== ENCOUNTER 2025-01-23 08:13 | Outpatient (AMB) | payer MEDICARE, SELFPAY ==
--- NOTE | 2025-01-23 08:58 | MHC.OFFVIS ---
Intake Visit Reasons: cysto Intake Note: Patient is present in office today for a cystoscopy Urology Medication: none Antibiotic Allergy:Penicillins Blood Thinner:Aspirin Bill Collector Required: No Allergies Penicillins Allergy (Verified 01/23/25 09:03) Rash HPI Comments Details: 01/23/25--Here for office cystoscopy. Cystoscopy findings: Mild bladder wall thickening. No suspicious bladder lesions. 74-year-old female presenting with urinary symptoms. She reports stress urinary incontinence, with episodes triggered by coughing or environmental stimuli such as running water. As a result, she consistently wears lightweight pads as a precaution. She denies recent aggravation of symptoms and reports improvement since her last visit. The patient expresses concerns regarding her current management approach and a desire to not rely on pads. She identifies specific triggers for her incontinence episodes but denies pain or burning sensation during urination. Urinary Symptoms Review - Urinary incontinence triggered by coughing - Urgency when exposed to environmental stimuli (e.g., running faucet) - Consistent use of light pads for leakage prevention Results - Tests and Diagnostics: Cystoscopy shows no suspicious bladder lesions, only mild thickening of bladder wall 11/14/24 - Yissel is a 73-year-old female who is here for evaluation due to hematuria. The patient states she had symptoms of a UTI urgency and pressure and within hours she had blood in the urine and. She went to the emergency room. I have reviewed CT imaging no suspicious renal masses noted. Urine culture was sent and came back all with E coli, pansensitive. Yissel states that in the past she has had microscopic hematuria was seen by urologist for about 10 years. States that they were following 'something in the bladder' with a CT scan that did not change. She does not recall having a cystoscopy. History of kidney stones. Denies history of nicotine use. She complains of urinary urgency. She feels that she urinates through her vagina but denies being wet all time. Urine for cytology Follow-up office cystoscopy pelvic. CTAP w IV contrast --09/24/24-- type 1 renal cysts bilaterally. No hydronephrosis or gross renal mass. Bilateral likely Bosniak type I cysts. Nephrolithiasis cannot be excluded. [facility] Medical History prison (current) use of opiate analgesic Chronic pain syndrome Chronic sinusitis Surgical History History of tubal ligation History of cholecystectomy Family History Father No problems noted. Mother No problems noted. Social History Housing: House Alcohol intake: current Alcohol intake frequency: holidays/special occasions only Patient Tobacco Use Status: Never used Tobacco e-Cigarette/Vaping Use: Never Used Second Hand Smoke Exposure: No service: No Current occupational status: retired Current occupational exposures/hazards: No Cognitive needs: No Hearing needs: No Vision needs: No Review of Systems Const All systems reviewed & are unremarkable except as noted in HPI and below Reports no additional complaints Eyes Reports no additional complaints ENT Reports no additional complaints Card Reports no additional complaints Resp Reports no additional complaints GI Reports no additional complaints Reports as per HPI Musc Reports no additional complaints Skin/Breast Reports system reviewed and no additional complaints, except as documented Neuro Reports no additional complaints Psych Reports no additional complaints Endo Reports no additional complaints Dilshad/Lymph Reports no additional complaints Aller/Immun Reports no additional complaints Office Procedures Cystoscopy Consent Discussed risk and benefit or proposed procedure with the patient. Information consent for procedure given to the patient. Discussed technical aspects, risks, benefits and alternatives in full. Addressed all of the patient's questions and concerns regarding the procedure. The patient demonstrated knowledge and understanding. They wish to proceed with this procedure. Preparation The patient was prepped in the usual manner. A helmet hat sweatband puncher was present and in the room. Genitalia was prepped with betadine solution in a sterile manner. Lidocaine Jelly 2% was placed into the urethra and 16Fr flexible Olympus cystoscope was inserted into the meatus after adequate lubrication. Procedure Time out per protocol performed. Speculum used as indicated for adequate visualization of urethra, the flexible cystoscope is passed transurethrally: The bladder was inspected in its entirety with utilization retroflexion displaying: Tumor(s): no suspicious bladder lesions visualized Trabeculation: Mild Mucosal Erthema: NA Orifices: normal shape and position Urethra: normal Cystoscopy findings: Mild bladder wall thickening, no suspicious bladder lesions visualized [id number] DISPOSABLE SCOPE URO-G FLEXIBLE SCOPE Procedure code (CPT) selection complete Office Meds lidocaine HCl 2 % mucosal jelly in applicator Performing Provider: Sanjay Betancur MD Performing Location: [facility] Administered by: Tena Del Rio RN on 01/23/25 09:24 Dose Route Admin Location Dispensed Lot Number Expiration Date NDC Etl Software Engineer 10 mL intra-urethral 10 mL ciprofloxacin HCl 500 mg tablet Performing Provider: Sanjay Betancur MD Performing Location: [facility] Administered by: Tena Del Rio RN on 01/23/25 09:24 Dose Route Admin Location Dispensed Lot Number Expiration Date NDC Etl Software Engineer 500 mg PO 1 tab phenazopyridine 200 mg tablet Performing Provider: Snajay Betancur MD Performing Location: [facility] Administered by: Tena Del Rio RN on 01/23/25 09:24 Dose Route Admin Location Dispensed Lot Number Expiration Date NDC Etl Software Engineer 200 mg PO 1 tab Results AMB Urinalysis, Automated UA Leukoctes 0 Reva/uL Last Edit by Mildred Mcdowell on 01/23/25 09:26 UA Nitrite Negative Last Edit by Mildred Mcdowell on 01/23/25 09:26 UA Urobilinogen 0.2 mg/dL Last Edit by Mildred Mcdowell on 01/23/25 09:26 UA Protein 0 mg/dL Last Edit by Mildred Mcdowell on 01/23/25 09:26 UA pH 6.5 Last Edit by Mildred Mcdowell on 01/23/25 09:26 UA Blood 80 Conrad/uL Last Edit by Mildred Mcdowell on 01/23/25 09:26 UA Specific [place] 1.010 Last Edit by Mildred Mcdowell on 01/23/25 09:26 UA Ketone Negative Last Edit by Mildred Mcdowell on 01/23/25 09:26 UA Bilirubin 0 mg/dL Last Edit by Mildred Mcdowell on 01/23/25 09:26 UA Glucose 0 mg/dL Last Edit by Mildred Mcdowell on 01/23/25 09:26 Results Reviewed Results Reviewed: Laboratory Last Values Urine pH (Auto) 6.5 01/23/25 09:18 Specific [place] (Auto) 1.010 01/23/25 09:18 Urine Protein (Auto) 0 mg/dL 01/23/25 09:18 Glucose (UA)(Auto) 0 mg/dL 01/23/25 09:18 Urine Ketones (Auto) Negative 01/23/25 09:18 Urine Blood (Auto) 80 Conrad/uL 01/23/25 09:18 Urine Nitrite (Auto) Negative 01/23/25 09:18 Urine Bilirubin (Auto) 0 mg/dL 01/23/25 09:18 Urine Urobilinogen (Auto) 0.2 mg/dL 01/23/25 09:18 Leukocyte Esterase (Auto) 0 Reva/uL 01/23/25 09:18 Date of Service: 09/24/24 CT ABDOMEN AND PELVIS WITH CONTRAST CLINICAL INFORMATION: Gross hematuria. COMPARISON: None available. TECHNIQUE: Multidetector volumetric images were obtained from the superior aspect of the liver through the pubic symphysis following administration 85 mL of Omnipaque 350 intravenous contrast without reported immediate complications. Sagittal and coronal reformatted images were obtained on the technologist's workstation. Oral contrast: No This CT examination was performed using dose optimization techniques as appropriate, variously including the following: *Automated exposure control *Adjustment of mA and/or kV according to patient size (this includes techniques or standardized protocols for targeted exams where dose is matched to indication/reason for exam; i.e. extremities or head) *Use of iterative reconstruction technique DLP: 389 mGy-cm FINDINGS: LUNG BASES: No acute airspace disease or gross pulmonary nodules in the included lungs. LIVER, GALLBLADDER, AND BILIARY TREE: Liver measures 15 cm. There is a 1.5 cm portal venous phase enhancing lesion in the periphery of the right hepatic lobe. There are a few scattered subcentimeter hypodensities, the largest in the left hepatic lobe measures 1 cm. Portal vein, hepatic veins and intrahepatic portion of the IVC are patent. Status post cholecystectomy. Common bile duct measures 5 mm. PANCREAS: No focal pancreatic mass. No peripancreatic fluid collection. No main pancreatic ductal dilatation. SPLEEN: Measures 8 cm. No focal mass. ADRENAL GLANDS: Soft tissue fullness without nodular lesions. KIDNEYS AND URETERS: Right kidney: Multifocal lobulated well-defined fluid density lesions, the largest measures 3 cm in the upper pole/midportion. No gross renal mass or hydronephrosis. Left kidney: There are a few scattered nonenhancing fluid density lesions, the largest measures 1.2 cm in, exophytic midportion. No hydronephrosis. BLADDER: Fluid-filled. GASTROINTESTINAL TRACT: Abundant stool. No intestinal obstruction pattern. No ascites. No pneumoperitoneum. No pneumatosis intestinalis. Appendix is normal. ABDOMINAL WALL: No gross hernia. LYMPH NODES: Nonspecific prominent lymph nodes, mesenteric and retroperitoneal. VASCULAR: Mixed plaques throughout the abdominal aorta wall and iliac arteries without aneurysm or dissection. Calcified plaques in the origin of the main renal arteries. Calcified plaques in the splenic artery. PELVIC VISCERA: No gross masses in the adnexa or the uterus. Prominent pelvic veins. OSSEOUS STRUCTURES: Multilevel thoracolumbar spondylosis resulting in an levoconvex rotoscoliosis apex at L2-3. Grade 1 anterolisthesis L4-5 resulting in central spinal canal and bilateral neuroforamina stenosis. Grade 1 retrolisthesis L2-3 resulting in central spinal canal and bilateral neuroforamina stenosis. IMPRESSION: No hydronephrosis or gross renal mass. Bilateral likely Bosniak type I cysts. Nephrolithiasis cannot be excluded. Probable flash hemangioma, right hepatic lobe. Probable cysts versus hamartoma, left hepatic lobe. Atherosclerosis disease. Multilevel thoracolumbar spondylosis more conspicuous at L4-5 and L2-3 levels. Collected: 09/24/24-UNK Status: COMP Req#: [id number] Received: 09/24/24 Source: [facility] Sp Desc: Clean Cat Subm Dr: Generic ED Physician Ordered: Urine Culture Procedure Result Verified Urine Culture Final 09/26/24 Organism 1 Escherichia coli Quant > 100,000 cfu/mL E coli M.I.C. RX --------- --- Ampicillin >=32 R Cefazolin 16 S Cefepime <=0.12 S Ceftriaxone <=0.25 S Ciprofloxacin <=0.06 S Gentamicin <=1 S Nitrofurantoin <=16 S Trimethoprim/Sulfamethoxazole <=20 S Assessment & Plan Assessment & Plan (1) Complicated UTI (urinary tract infection): Code(s): N39.0 - Urinary tract infection, site not specified Category: Medical (2) Gross hematuria: Code(s): R31.0 - Gross hematuria Category: Medical (3) History of kidney stones: Code(s): Z87.442 - Personal history of urinary calculi Category: Medical (4) Bilateral renal cysts: Code(s): N28.1 - Cyst of kidney, acquired Category: Medical (5) OAB (overactive bladder): Code(s): N32.81 - Overactive bladder Category: Medical Plan Plan - Take Mirabegron 50 mg daily as prescribed to manage bladder spasms. - Continue monitoring urinary symptoms and note any changes. - Use light pads for protection as needed. Orders: Orders AMB Cystoscopy 01/23/25 R31.0 - Gross hematuria, N39.0 - Urinary tract infection, site not specified AMB Urinalysis Automated 01/23/25 Z13.9 - Encounter for screening, unspecified Patient Instructions: The patient had an opportunity to ask questions regarding treatment plan. The patient expressed understanding and agreement with the above treatment plan. The patient is aware they should contact our office by phone for worsening of their current condition or the appearance of new symptoms. Compliance is encouraged with any medications and followup testing that is ordered. It is a privilege to be allowed the opportunity to participate in the urologic care of your patient. If you have any questions or concerns regarding treatment for the above conditions please do not hesitate to contact me. The office telephone contact is [phone]. This note is constructed in part using voice recognition software. While every effort has been made to ensure accuracy clinical laboratory scientist errors may have been included. Yours sincerely, Sanjay Betancur MD Scribe Plan - Not visible on output: Patient was informed and verbally consented to the use of an ambient scribe for clinic note documentation during this visit. Coding Level of Care Code Est Pt Level 4 (92505) Diagnoses Complicated UTI (urinary tract infection) N39.0 Gross hematuria R31.0 History of kidney stones Z87.442 Bilateral renal cysts N28.1 OAB (overactive bladder) N32.81 CPT Codes Cystoscopy - CPT: 09822-[id number] ([id number])
== END 2025-01-23 09:59 | disposition home or self-care (01) ==
LOC: HO.HUSH 08:14
PROVIDERS: PCP Family Medicine; Visit Provider Urology
DX: N39.0 Urinary tract infection, site not specified (principal); R31.0 Gross hematuria; Z87.442 Personal history of urinary calculi; N28.1 Cyst of kidney, acquired; N32.81 Overactive bladder
CPT/HCPCS: 52000; 99213

== ENCOUNTER → 2025-01-23 08:13 | Outpatient (BNVA) | payer MEDICARE, SELFPAY | PROVIDERS: PCP Family Medicine; Visit Provider Urology | DX: N39.0 Urinary tract infection, site not specified (principal); N32.81 Overactive bladder; N28.1 Cyst of kidney, acquired; R31.0 Gross hematuria; Z87.442 Personal history of urinary calculi | CPT/HCPCS: 52000; 81003; 99212 ==

== ENCOUNTER 2025-03-15 08:35 | Outpatient (REF) | payer MEDICARE, SELFPAY | END 2025-03-15 08:36 | disposition home or self-care (01) | LOC: HO.MAMMO 08:35 | PROVIDERS: PCP Family Medicine; Visit Provider Family Medicine | DX: Z12.31 Encounter for screening mammogram for malignant neoplasm of breast (principal) | CPT/HCPCS: 77063; 77067 ==

== ENCOUNTER → 2025-03-15 09:00 | Outpatient (BNV) | payer MEDICARE, SELFPAY | PROVIDERS: PCP Family Medicine; Visit Provider Internal Medicine | DX: Z12.31 Encounter for screening mammogram for malignant neoplasm of breast (principal) | CPT/HCPCS: 77063; 77067 ==

== ENCOUNTER 2025-04-14 09:04 | Outpatient (AMB) | payer MEDICARE, SELFPAY ==
--- NOTE | 2025-04-14 09:11 | A.OFFPC_ITS ---
Vital Signs 04/14/25 09:21 Height 5 ft 3 in Weight 134 lb 8 oz BMI 23.8 BP 136/64 Blood Pressure Location Rt brachial Position Sitting Respiration 14 Pulse 68 Pulse Source Pulse Oximeter Temp 97.7 F Temp Source Oral Pulse Oximetry (%) 97 Oxygen Delivery Method Room Air Intake Visit Reasons: f/u HTN, preDM Intake Note: patient is scheduled for pre-dm and htn. patient also needs a med refill for atorvastatin [employer] Required: No Allergies Penicillins Allergy (Verified 04/14/25 09:19) Rash Medication List - Last Reconciled 04/14/25 by Bacilio Vee MD aspirin (Ramesh Chewable Low Dose Aspirin) 81 mg PO DAILY atorvastatin 20 mg PO DAILY calcium carbonate ([place]) 168 mg PO TID cetirizine (All Day Allergy (cetirizine)) 10 mg PO DAILY PRN cholecalciferol (vitamin D3) 25 mcg PO DAILY dextromethorphan HBr 20 mg (15 mL) PO TID PRN 5 days gabapentin 300 mg PO BEDTIME 90 days lisinopril 20 mg PO DAILY meclizine 25 mg PO TID 10 days meloxicam 7.5 mg PO DAILY 30 days mirabegron ER (Myrbetriq) 50 mg PO DAILY 30 days tramadol 50 mg PO DAILY 30 days Tobacco use date assessed: 05/21/24 Dental Screening Dental Screen Date: 12/21/23 HPI f/u HTN, preDM HPI Details 74 y/o female presents to f/u HTN, pre-d iabetes as well as HLD. Last A1c 12/27/24 5.7%. A1c today 5.6%. Labs drawn 12/27/24. Reviewed labs with pt. Triglycerides 66. TC 161. LDL 65. HDL 83. Blood pressure today 136/64, 68p. She is on lisinopril 20mg daily. Pt reports R forearm/hand pain/stiffness which is worse in the morning. Reports hx of carpal tunnel. HPI Comments History of Present Illness Details Documentation assistance for Bacilio Vee MD, was provided by Nas Vaughn,? Market Developer on 04/14/2025 at 9:36 AM EST. I, Dr. Vee, have read, observed, and verified documentation. 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 Mother No problems noted. Social History Housing: House Alcohol intake: current Alcohol intake frequency: holidays/special occasions only Patient Tobacco Use Status: Never used Tobacco e-Cigarette/Vaping Use: Never Used Second Hand Smoke Exposure: No service: No Current occupational status: retired Current occupational exposures/hazards: No Cognitive needs: No Hearing needs: No Vision needs: No Questionnaire Thrive Questionnaire Date Thrive assessed: 12/20/24 I am a: Patient What is your living situation today?: I have a steady place to live Within the past 12 months, did the food you bought not last and you didn't have the money to get more?: Never true Within the past 12 months, did you worry whether your food would run out before you got money to buy more?: Never true Do you have trouble paying for medicines?: No Do you have trouble getting transportation to medical appointments?: No Do you have trouble paying your heating and electricity bill?: No Do you have trouble taking care of your child, family member or friend?: No Do you have trouble with day-to-day activities such as bathing, preparing meals, shopping, managing finances, etc.?: No Are you currently unemployed and looking for a job?: No Are you interested in more education?: No Please select the resources that you would like help with: None Currently or been in a relationship where the following occur: No concerns reported THRIVE Score: 0 JAZMYN-7 AMB Questionnaire JAZMYN-7 Date JAZMYN - 7 assessed: 12/21/23 Source: Developed by Drs. Eusebio López, Ellie Palacios, Sachin Moncada and colleagues, with an educational yovani from [employer]. Review of Systems Const Denies chills, Denies fatigue, Denies fever(s), Denies headache(s) and Denies w eakness ENT Denies dizziness and Denies headache(s) Card Denies dyspnea Resp Denies cough, Denies dyspnea, Denies wheezing and Denies other (shortness of breath) Musc Denies numbness and Denies tingling Neuro Denies dizziness, Denies headache(s), Denies numbness, Denies tingling and Denies weakness Psych Denies anxiety and Denies depression Endo Denies fatigue Aller/Immun Denies wheezing Physical exam (Primary Care) Vital Signs: Last Vital Signs Temp 97.7 F 04/14/25 09:21 Pulse 68 04/14/25 09:21 Resp 14 04/14/25 09:21 BP 136/64 04/14/25 09:21 Pulse Ox 97 04/14/25 09:21 Oxygen Delivery Method Room Air 04/14/25 09:21 BMI result Body Mass Index 23.8 Tobacco/Smoking Status: Tobacco use Status Tobacco use date assessed 05/21/24 04/14/25 09:13 Patient Tobacco Use Status Never used Tobacco 04/14/25 09:13 e-Cigarette/Vaping Use Never Used 04/14/25 09:13 Thrive Assessment: Date of Thrive Assessment Date Thrive assessed 12/20/24 04/14/25 09:13 Currently or been in a relationship where the following occur: No concerns reported Const General: well developed; No acute distress Nutritional Appearance: well nourished Orientation/consciousness: patient oriented x3 [facility] Head: Yes normocephalic and Yes atraumatic Eyes General: appearance normal, both eyes and all related structures Pupils: Equal, round and reactive pupils present EOM: EOMs intact bilaterally Resp Effort & Inspection: normal respiratory effort Neuro General: patient oriented x3 and gait normal Cranial nerves: Yes Equal, round and reactive pupils present Psych Affect: normal affect Coding Level of Care Code Est Pt Level 4 (94510) Diagnoses Essential hypertension I10 Hyperlipidemia E78.5 Pre-diabetes R73.03 Tendinitis of right forearm M77.8 Right hand pain M79.641 Assessment & Plan Assessment & Plan (1) Essential hypertension: Code(s): I10 - Essential (primary) hypertension Category: Medical Plan: Blood?pressure?is?controlled.??Goal?is?less?than?140/90 Continue?current?medication Encouraged?diet?low?in?salt/sodium Encouraged?exercise?and?weight?control (2) Hyperlipidemia: Code(s): E78.5 - Hyperlipidemia, unspecified Category: Medical Plan: Lipid?panel?all?well?controlled?on?atorvastatin?20?mg?daily Continue?current?medication (3) Pre-diabetes: Code(s): R73.03 - Prediabetes Category: Medical Plan: A1c?improved?slightly?to?5.6% Continue?diet?low?in?sugars?and?starches (4) Tendinitis of right forearm: Code(s): M77.8 - Other enthesopathies, not elsewhere classified Category: Medical Plan: Right?forearm?and?hand?pain She?notes?that?she?uses?her?compu ter?a?lot?at?night?and?this?tends?to?exacerbate?the?discomfort Likely?right?forearm?tendinitis She?can?use?ice/heat,?occasional?NSAIDs,?gentle?stretching,?wrist?brace Also?advised?changing?environment?such?as?using?a?different input?device?or?switching?hands?on?input?device. She?will?let?me?know?if?worsening?or?not?improving (5) Right hand pain: Code(s): M79.641 - Pain in right hand Category: Medical Plan: As above Orders: Orders Comprehensive [facility]. Panel Fast Today Z00.00 - Encounter for general adult medical examination without abnormal findings Lipid Panel Today Z00.00 - Encounter for general adult medical examination without abnormal findings UA CC w/rflx Micro + Cult Today Z00.00 - Encounter for general adult medical examination without abnormal findings TSH reflex Free T4 Today Z00.00 - Encounter for general adult medical examination without abnormal findings Complete Blood Count Auto Diff Today Z00.00 - Encounter for general adult medical examination without abnormal findings Microalbumin, Random (w Creat) Today I10 - Essential (primary) hypertension
[2025-04-14 09:21] VITALS: BP 136/64; PULSE 68; RESP 14; TEMP 36.5; O2SAT 97; BMI 23.8
== END 2025-04-14 09:48 | disposition home or self-care (01) ==
LOC: HO.HMCFM 09:05
PROVIDERS: PCP Family Medicine; Visit Provider Family Medicine
DX: I10 Essential (primary) hypertension (principal); E78.5 Hyperlipidemia, unspecified; R73.03 Prediabetes; M77.8 Other enthesopathies, not elsewhere classified; M79.641 Pain in right hand

== ENCOUNTER → 2025-04-14 09:04 | Outpatient (BNVA) | payer MEDICARE, SELFPAY | PROVIDERS: PCP Family Medicine; Visit Provider Family Medicine | DX: I10 Essential (primary) hypertension (principal); E78.5 Hyperlipidemia, unspecified; R73.03 Prediabetes; M77.8 Other enthesopathies, not elsewhere classified; M79.641 Pain in right hand | CPT/HCPCS: 99212 ==

== ENCOUNTER 2025-04-28 08:22 | Outpatient (AMB) | payer MEDICARE, SELFPAY ==
--- NOTE | 2025-04-28 08:35 | MHC.OFFVIS ---
Intake Visit Reasons: 3 month med review Intake Note: Patient is present in office today for a 3 month med review Urology Medication: none Antibiotic Allergy:Penicillins Blood Thinner:Aspirin PVR:0ml Instructional Facilitator Required: No Allergies Penicillins Allergy (Verified 04/28/25 08:36) Rash Medication List - Last Reconciled 04/28/25 by Sanjay Betancur MD aspirin (Ramesh Chewable Low Dose Aspirin) 81 mg PO DAILY atorvastatin 20 mg PO DAILY calcium carbonate ([place]) 168 mg PO TID cetirizine (All Day Allergy (cetirizine)) 10 mg PO DAILY PRN cholecalciferol (vitamin D3) 25 mcg PO DAILY gabapentin 300 mg PO BEDTIME 90 days lisinopril 20 mg PO DAILY meloxicam 7.5 mg PO DAILY 30 days tramadol 50 mg PO DAILY 30 days vibegron (Gemtesa) 75 mg PO DAILY HPI Comments Details: 04/28/25-- - The patient is a 74-year-old female presenting for follow-up of overactive bladder and microscopic hematuria. - Overactive bladder: Initially treated with Myrbetriq 50 mg, which was effective but discontinued due to cost concerns. - Microscopic hematuria: Urinalysis revealed leukocytes negative and blood 2 plus. - Previous evaluations included cystoscopy showing bladder wall thickening and CT imaging revealing bilateral cysts without suspicious masses. Urinary Symptoms Review - Overactive bladder symptoms were managed with Myrbetriq, which was effective but discontinued due to cost. Results - Urinalysis: Leukocytes negative, blood 2 plus. - Cystoscopy (01/23/25): No suspicious bladder lesions, bladder wall thickening noted. - CT abdomen and pelvis (09/24/2024): Bilateral cysts, negative for kidney stones or suspicious renal masses. Discussion Notes I discussed with the patient the discontinuation of Myrbetriq due to cost and introduced Gemtesa (Vibegron) 75 mg as an alternative, which is covered by most Medicare plans. I advised the patient to contact the nurse if the new medication is still costly so we can find another alternative, plan follow up in six months with DISABILITY AIDE to reassess symptoms and perform a urinalysis. 01/23/25--Here for office cystoscopy. Cystoscopy findings: Mild bladder wall thickening. No suspicious bladder lesions. 74-year-old female presenting with urinary symptoms. She reports stress urinary incontinence, with episodes triggered by coughing or environmental stimuli such as running water. As a result, she consistently wears lightweight pads as a precaution. She denies recent aggravation of symptoms and reports improvement since her last visit. The patient expresses concerns regarding her current management approach and a desire to not rely on pads. She identifies specific triggers for her incontinence episodes but denies pain or burning sensation during urination. Urinary Symptoms Review - Urinary incontinence triggered by coughing - Urgency when exposed to environmental stimuli (e.g., running faucet) - Consistent use of light pads for leakage prevention Results - Tests and Diagnostics: Cystoscopy shows no suspicious bladder lesions, only mild thickening of bladder wall 11/14/24 - Yissel is a 73-year-old female who is here for evaluation due to hematuria. The patient states she had symptoms of a UTI urgency and pressure and within hours she had blood in the urine and. She went to the emergency room. I have reviewed CT imaging no suspicious renal masses noted. Urine culture was sent and came back all with E coli, pansensitive. Yissel states that in the past she has had microscopic hematuria was seen by urologist for about 10 years. States that they were following 'something in the bladder' with a CT scan that did not change. She does not recall having a cystoscopy. History of kidney stones. Denies history of nicotine use. She complains of urinary urgency. She feels that she urinates through her vagina but denies being wet all time. Urine for cytology Follow-up office cystoscopy pelvic. CTAP w IV contrast --09/24/24-- type 1 renal cysts bilaterally. No hydronephrosis or gross renal mass. Bilateral likely Bosniak type I cysts. Nephrolithiasis cannot be excluded. COUNT INCLUDES THE [facility] Medical History [facility] (current) use of opiate analgesic Chronic pain syndrome Chronic sinusitis Surgical History History of tubal ligation History of cholecystectomy Family History Father No problems noted. Mother No problems noted. Social History Housing: House Alcohol intake: current Alcohol intake frequency: holidays/special occasions only Patient Tobacco Use Status: Never used Tobacco e-Cigarette/Vaping Use: Never Used Second Hand Smoke Exposure: No service: No Current occupational status: retired Current occupational exposures/hazards: No Cognitive needs: No Hearing needs: No Vision needs: No Review of Systems Const All systems reviewed & are unremarkable except as noted in HPI and below Reports no additional complaints Eyes Reports no additional complaints ENT Reports no additional complaints Card Reports no additional complaints Resp Reports no additional complaints GI Reports no additional complaints Reports as per HPI Musc Reports no additional complaints Skin/Breast Reports system reviewed and no additional complaints, except as documented Neuro Reports no additional complaints Psych Reports no additional complaints Endo Reports no additional complaints Dilshad/Lymph Reports no additional complaints Aller/Immun Reports no additional complaints Assessment & Plan Assessment & Plan (1) Complicated UTI (urinary tract infection): Code(s): N39.0 - Urinary tract infection, site not specified Category: Medical (2) History of kidney stones: Code(s): Z87.442 - Personal history of urinary calculi Category: Medical (3) Bilateral renal cysts: Code(s): N28.1 - Cyst of kidney, acquired Category: Medical (4) OAB (overactive bladder): Code(s): N32.81 - Overactive bladder Category: Medical (5) Hematuria: Code(s): R31.9 - Hematuria, unspecified Category: Medical Plan Plan - Prescribe Gemtesa Vibegron) 75 mg for overactive bladder, ensuring coverage by Medicare. - Advise patient to contact the nurse if medication cost is prohibitive, to consider alternatives. - Plan a follow-up in six months with a nurse practitioner for symptom reassessment and urinalysis. Medications: New vibegron (Gemtesa) 75 mg PO DAILY 90 tabs 3RF Discontinued mirabegron ER (Myrbetriq) Discontinued Reason: Doctor's Order 50 mg PO DAILY 30 days 30 tabs 1RF Patient Instructions: The patient had an opportunity to ask questions regarding treatment plan. The patient expressed understanding and agreement with the above treatment plan. The patient is aware they should contact our office by phone for worsening of their current condition or the appearance of new symptoms. Compliance is encouraged with any medications and followup testing that is ordered. It is a privilege to be allowed the opportunity to participate in the urologic care of your patient. If you have any questions or concerns regarding treatment for the above conditions please do not hesitate to contact me. The office telephone contact is [phone]. This note is constructed in part using voice recognition software. While every effort has been made to ensure accuracy lung puller errors may have been included. Yours sincerely, Sanjay Betancur MD Scribe Plan - Not visible on output: Patient was informed and verbally consented to the use of an ambient scribe for clinic note documentation during this visit. Coding Level of Care Code Est Pt Level 4 (68850) Diagnoses Complicated UTI (urinary tract infection) N39.0 History of kidney stones Z87.442 Bilateral renal cysts N28.1 OAB (overactive bladder) N32.81 Hematuria R31.9
== END 2025-04-28 09:16 | disposition home or self-care (01) ==
LOC: HO.HUSH 08:23
PROVIDERS: PCP Family Medicine; Visit Provider Urology
DX: N39.0 Urinary tract infection, site not specified (principal); Z87.442 Personal history of urinary calculi; N28.1 Cyst of kidney, acquired; N32.81 Overactive bladder; R31.9 Hematuria, unspecified; Z13.9 Encounter for screening, unspecified
CPT/HCPCS: 99214

== ENCOUNTER → 2025-04-28 08:22 | Outpatient (BNVA) | payer MEDICARE, SELFPAY | PROVIDERS: PCP Family Medicine; Visit Provider Urology | DX: N39.0 Urinary tract infection, site not specified (principal); N28.1 Cyst of kidney, acquired; N32.81 Overactive bladder; R31.9 Hematuria, unspecified; Z87.442 Personal history of urinary calculi | CPT/HCPCS: 51798; 81003; 99212 ==

== ENCOUNTER 2025-07-15 10:03 | Outpatient (REF) | payer MEDICARE, SELFPAY ==
[2025-07-15 11:20] LABS: Appearance Urine Clear; Glucose Urine UA Negative (Negative); PH 7.0 (5.0-9.0); Specific Gravity - Urine 1.015 (1.005-1.025); UMIC TRIGGER UACC YES
[2025-07-15 11:35] LABS: UACC Culture Trigger YES
[2025-07-15 11:54] LABS: Microalbum/Creatinine Ratio Ur 13.8 ug/mg cr (<30)
[2025-07-15 14:26] LABS: MANUAL DIFF FLAG NO
[2025-07-15 14:33] LABS: Hematocrit 42.6 % (37.0-47.0); Hemoglobin 14.4 g/dl (12.0-16.0); Imm Gran Abs Auto 0.01 X10*3/uL (0.00-0.03); Imm Gran Pct Auto 0.1 % (0.0-0.4); Lymphocytes Absolute Auto 2.7 X10*3/uL (1.2-4.9); Mean Corpuscular HGB Conc 33.8 g/dl (31.0-35.0); Mean Corpuscular Hemoglobin 31.4 pg (27.0-33.0); Mean Corpuscular Volume 92.8 fL (80.0-98.0); NRBC Abs Auto 0.000 X10*3/uL (0.0-0.012); NRBC Pct Auto 0.0 /100WBC (0.0-0.2); Platelet Count 254 X10*3/uL (160-400); Red Blood Count 4.59 X10*6/uL (4.20-5.50); White Blood Count 7.1 X10*3/uL (4.8-10.8)
[2025-07-15 14:47] LABS: Hemoglobin A1C 140.7147 umol/L; Total Hemoglobin (HGBA1C) 3762.8397 umol/L
[2025-07-15 14:59] LABS: Alanine Aminotransferase 23 U/L (0-31); Albumin Level 4.5 g/dL (3.5-5.0); Alkaline Phosphatase 82 U/L (39-117); Anion Gap 12 (12-20); Aspartate Amino Transferase 28 U/L (5-31); Blood Urea Nitrogen 17 mg/dL (9-16); Calcium 9.2 mg/dL (8.4-10.2); Carbon Dioxide 30 mmol/L (22-29); Chloride 105 mmol/L (96-108); Cholesterol 147 mg/dL (<200); Estimated Glomerular Filt Rate > 60; HDL Cholesterol 71 mg/dL (>40); Potassium 4.6 mmol/L (3.3-5.1); Sodium 142 mmol/L (135-145); Total Protein 7.0 g/dL (6.5-8.0); Triglycerides 82 mg/dL (<150)
== END 2025-07-15 10:04 | disposition home or self-care (01) ==
LOC: HO.WFDLDS 10:03
PROVIDERS: Visit Provider Family Medicine
DX: Z00.00 Encounter for general adult medical examination without abnormal findings (principal); I10 Essential (primary) hypertension; R73.01 Impaired fasting glucose
CPT/HCPCS: 36415; 80053; 80061; 81001; 82043; 82570; 83036; 84443; 85025; 87086

== ENCOUNTER 2025-07-22 08:38 | Outpatient (AMB) | payer MEDICARE, SELFPAY ==
--- NOTE | 2025-07-22 08:50 | A.OFFPC_ITS ---
Vital Signs 07/22/25 08:55 Height 5 ft 3 in Weight 135 lb 2 oz BMI 23.9 BP 138/82 Blood Pressure Location Rt brachial Position Sitting Respiration 14 Pulse 76 Pulse Source Pulse Oximeter Temp 97.4 F Temp Source Temporal Artery Scan Pulse Oximetry (%) 98 Oxygen Delivery Method Room Air Intake Visit Reasons: Annual PE/3 mo fu - see comments Intake Note: Yissel presents in the office today for her annual physical/follow up. Allergies Penicillins Allergy (Verified 07/22/25 08:51) Rash Medication List - Last Reconciled 07/22/25 by Bacilio Vee MD aspirin (Ramesh Chewable Low Dose Aspirin) 81 mg PO DAILY atorvastatin 20 mg PO DAILY cetirizine (All Day Allergy (cetirizine)) 10 mg PO DAILY PRN cholecalciferol (vitamin D3) 25 mcg PO DAILY gabapentin 300 mg PO BEDTIME 90 days lisinopril 20 mg PO DAILY meloxicam 7.5 mg PO DAILY 30 days tramadol 50 mg PO DAILY 30 days Tobacco use date assessed: 07/22/25 Fall risk assessment: No Falls in past year Last assessed Fall Risk: 07/22/25 Dental Screening Dental Screen Date: 07/22/25 Did you have a dental visit in the last 12 months?: No Did you have a dental problem in the last 6 months where you did not have access to dental care?: No Was dental information given to patient?: Patient declined HPI Annual PE/3 mo fu - see comments HPI Details 74 y/o female presents for a CPE with f/ u labs and health maintenance. Labs drawn 07/15/25. Reviewed labs with pt. Triglycerides 82. TC 147. LDL 60. HDL 71. A1c 5.6%. Blood pressure today 138/82, 76p. She is on lisinopril 20mg daily. [facility] Medical History senior living (current) use of opiate analgesic Chronic pain syndrome Chronic sinusitis Surgical History History of tubal ligation History of cholecystectomy Family History (Updated 07/22/25 @ 08:55 by Paulina Mireles MA) Father Substance abuse Alcoholism Mother No problems noted. Social History (Updated 07/22/25 @ 08:55 by Paulina Mireles MA) Housing: House Alcohol intake: current Alcohol intake frequency: holidays/special occasions only Patient Tobacco Use Status: Never used Tobacco e-Cigarette/Vaping Use: Never Used Second Hand Smoke Exposure: No service: No Current occupational status: retired Current occupational exposures/hazards: No Cognitive needs: No Hearing needs: No Vision needs: No Questionnaire PHQ-9 Over the last 2 weeks, how often have you been bothered by any of the following problems? 1. Little interest or pleasure in doing things: not at all 2. Feeling down, depressed, or hopeless: not at all 3. Trouble falling or staying asleep, or sleeping too much: not at all 4. Feeling tired or having little energy: not at all 5. Poor appetite or overeating: not at all 6. Feeling bad about yourself - or that you are a failure or have let yourself or your family down: not at all 7. Trouble concentrating on things, such as reading the newspaper or watching television: not at all 8. Moving or speaking so slowly that other people could have noticed. Or the opposite - being so fidgety or restless that you have been moving around a lot more than usual: not at all 9. Thoughts that you would be better off or of hurting yourself in some way: not at all Total score: 0 Depression Screening Interpretation: Negative Depression Screening Done: Yes 84574 - PHQ-9 Billing: Yes Source: Developed by Drs. Eusebio López, Ellie Palacios, Sachin Moncada and colleagues, with an educational yovnai from [employer]. Thrive Questionnaire Date Thrive assessed: 07/22/25 I am a: Patient What is your living situation today?: I have a steady place to live Within the past 12 months, did the food you bought not last and you didn't have the money to get more?: Never true Within the past 12 months, did you worry whether your food would run out before you got money to buy more?: Never true Do you have trouble paying for medicines?: No Do you have trouble getting transportation to medical appointments?: No Do you have trouble paying your heating and electricity bill?: No Do you have trouble taking care of your child, family member or friend?: No Do you have trouble with day-to-day activities such as bathing, preparing meals, shopping, managing finances, etc.?: No Are you currently unemployed and looking for a job?: No Are you interested in more education?: No Please select the resources that you would like help with: None Currently or been in a relationship where the following occur: No concerns reported THRIVE Score: 0 AUDIT C Alcohol Use Questionnaire (AUDIT-C) 1. How often do you have a drink containing alcohol?: Monthly or less 2. How many drinks containing alcohol do you have on a typical day when you are drinking?: 1 or 2 3. How often do you have six or more drinks on one occasion?: Never Total Score: 1 JAZMYN-7 AMB Questionnaire JAZMYN-7 Date JAZMYN - 7 assessed: 07/22/25 Feeling nervous, anxious, or on edge: 0 = Not at all Not being able to stop or control worryin = Not at all Worrying too much about different things: 0 = Not at all Trouble relaxin = Not at all Being so restless that it is hard to sit still: 0 = Not at all Becoming easily annoyed or irritable: 0 = Not at all Feeling afraid as if something awful might happen: 0 = Not at all Total JAZMYN-7 score (0-4 normal; 5-9 mild; 10-14 moderate; 15-21 severe): 0 Source: Developed by Drs. Eusebio López, Ellie Palacios, Sachin Moncada and colleagues, with an educational yovani from [employer]. JAZMYN-7 Assessment Billing JAZMYN-7 Assessment Tool: JAZMYN-7 Assessment 80698 Review of Systems Const Denies chills, Denies fatigue, Denies fever(s), Denies headache(s) and Denies weakness Eyes Denies change in vision ENT Denies dizziness, Denies headache(s), Denies hearing loss, Denies nasal congestion, Denies sinus pain, Denies sinus pressure and Denies sore throat Card Denies chest pain, Denies lightheadedness, Denies dyspnea and Denies other (palpitations) Resp Denies cough, Denies dyspnea and Denies wheezing GI Denies abdominal pain, Denies melena, Denies hematochezia, Denies change in bowel habits, Denies dyspepsia and Denies nausea Denies hematuria and Denies dysuria Musc Denies abnormal gait, Denies myalgias, Denies arthralgias, Denies numbness and Denies tingling Skin/Breast Denies rash, Denies unusual bruising and Denies wounds Neuro Denies abnormal gait, Denies dizziness, Denies headache(s), Denies memory loss, Denies numbness, Denies Sensory deficit (Neuro), Denies tingling and Denies weakness Psych Denies anxiety, Denies depression and Denies memory loss Endo Denies cold intolerance, Denies fatigue, Denies heat intolerance, Denies polydipsia and Denies polyuria Dilshad/Lymph Denies easy bleeding and Denies easy bruising Aller/Immun Denies wheezing Physical exam (Primary Care) Vital Signs: Last Vital Signs Temp 97.4 F 07/22/25 08:55 Pulse 76 07/22/25 08:55 Resp 14 07/22/25 08:55 BP 138/82 07/22/25 08:55 Pulse Ox 98 07/22/25 08:55 Oxygen Delivery Method Room Air 07/22/25 08:55 BMI result Body Mass Index 23.9 Tobacco/Smoking Status: Tobacco use Status Tobacco use date assessed 07/22/25 07/22/25 08:57 Patient Tobacco Use Status Never used Tobacco 07/22/25 08:57 e-Cigarette/Vaping Use Never Used 07/22/25 08:57 PHQ-9: PHQ-9 Score PHQ-9: Total score 0 07/22/25 09:19 Depression Screening Interpretation: Negative Thrive Assessment: Date of Thrive Assessment Date Thrive assessed 07/22/25 07/22/25 08:59 Currently or been in a relationship where the following occur: No concerns reported Const General: no acute distress, well developed, alert and awake Nutritional Appearance: well nourished Orientation/consciousness: patient oriented x3 HENMT Head: Yes normocephalic and Yes atraumatic Ears: hearing grossly normal bilaterally and TM's normal bilaterally General nose exam: Normal external nose present and Normal nares present Mouth: Normal oral and palatal mucosa present and moist mucous membranes Teeth and gingiva: dentition normal Throat: Yes posterior oropharynx normal Eyes General: appearance normal, both eyes and all related structures Pupils: Equal, round and reactive pupils present and Pupil accommodation reflex normal EOM: EOMs intact bilaterally Neck Neck: Yes normal visual inspection, Yes no lymphadenopathy and Yes trachea midline Thyroid: Thyroid normal Carotids: no bruits Lymphatic: no lymphadenopathy noted Chest Chest palpation & inspection: normal inspection of the chest Resp Effort & Inspection: normal respiratory effort Auscultation: clear to auscultation bilaterally Cardio Rate: regular rate Rhythm: regular rhythm Heart sounds: S1 normal heart sound present, S2 normal heart sound present, no gallops, no murmurs and no rubs Bruits: no abdominal aortic bruits and no carotid bruits GI Palpation (GI): No Abdominal aortic bruit present, Soft to palpation, nontender, No hepatosplenomegaly present and No Rebound tenderness present Auscultation: normal bowel sounds General: Yes no CVA tenderness Back/Spine/Pelvis Back: no CVA tenderness Cervical Spine: cervical ROM normal and No Cervical spine tenderness Thoracic/Lumbar Spine: thoraco-lumbar ROM normal, No pain with thoraco-lumbar ROM, No thoracic spinal tenderness and No lumbar spinal tenderness Skin Lesions: no lesions Rashes: no rashes Trauma: no lacerations or abrasions Wounds: no wounds Nails: normal Neuro General: patient oriented x3 Cranial nerves: Yes Equal, round and reactive pupils present Cognition (Neuro): normal cognition Gait exam (Neuro): Normal gait present Motor exam (neuro): 5/5 motor strength present throughout Sensory Exam: No Sensory deficit (Neuro) Deep tendon reflexes (DTR's): Right patellar reflex intensity grade: 2+ and Left patellar reflex intensity grade: 2+ Extrem General: Yes normal to inspection and No edema Psych Appearance: grossly normal Affect: normal affect Attitude: cooperative Thought process: Normal thought process present Coding Level of Care Code Est Pt Prev Care >65y(20772) Diagnoses Adult general medical exam Z00.00 Essential hypertension I10 Hyperlipidemia E78.5 Screening for breast cancer Z12.39 Screening for colon cancer Z12.11 Screening for osteoporosis Z13.820 Additional Codes JAZMYN-7 Assessment Billing - JAZMYN-7 Assessment Tool: JAZMYN-7 Assessment 74873 ([id number]) PHQ-9 - 83772 - PHQ-9 Billing: Yes ([id number]) Assessment & Plan Assessment & Plan (1) Adult general medical exam: Code(s): Z00.00 - Encounter for general adult medical examination without abnormal findings Category: Medical Plan: 74-year-old female presents for complete physical exam Encouraged healthy diet with active lifestyle and plenty of exercise (2) Essential hypertension: Code(s): I10 - Essential (primary) hypertension Category: Medical Plan: Blood pressure is controlled. Goal is less than 140/90 Continue current medication (3) Hyperlipidemia: Code(s): E78.5 - Hyperlipidemia, unspecified Category: Medical Plan: Cholesterol is controlled. She is taking atorvastatin 20 mg daily as prescribed Continue current medication (4) Screening for breast cancer: Code(s): Z12.39 - Encounter for other screening for malignant neoplasm of breast Category: Medical Plan: Prior mammogram showed no evidence of malignancy and recommended annual screening Up-to-date (5) Screening for colon cancer: Code(s): Z12.11 - Encounter for screening for malignant neoplasm of colon Category: Medical Plan: Cologuard test was negative She will be due to repeat this next year (6) Screening for osteoporosis: Code(s): Z13.820 - Encounter for screening for osteoporosis Category: Medical Plan: Bone density in 2023 showed osteopenia Recommended good sources of calcium and vitamin-D and weight-bearing exercise Will repeat in 2025
[2025-07-22 08:55] VITALS: BP 138/82; PULSE 76; RESP 14; TEMP 36.3; O2SAT 98; BMI 23.9
== END 2025-07-22 09:36 | disposition home or self-care (01) ==
LOC: HO.HMCFM 08:39
PROVIDERS: PCP Family Medicine; Visit Provider Family Medicine
DX: Z00.00 Encounter for general adult medical examination without abnormal findings (principal); I10 Essential (primary) hypertension; E78.5 Hyperlipidemia, unspecified; Z12.39 Encounter for other screening for malignant neoplasm of breast; Z12.11 Encounter for screening for malignant neoplasm of colon; Z13.820 Encounter for screening for osteoporosis

== ENCOUNTER → 2025-07-22 08:38 | Outpatient (BNVA) | payer MEDICARE, SELFPAY | PROVIDERS: PCP Family Medicine; Visit Provider Family Medicine | DX: Z00.00 Encounter for general adult medical examination without abnormal findings (principal); I10 Essential (primary) hypertension; E78.5 Hyperlipidemia, unspecified | CPT/HCPCS: 96127; 99397 ==